=== PATIENT | female | born 1990 | race Caucasian/White ===

== ENCOUNTER 2020-08-13 16:36 | Inpatient (IN) | payer MEDICAID, SELFPAY ==
--- NOTE | ~2020-08-13 | CT_ITS ---
EXAMINATION: CT CHEST, ABDOMEN AND PELVIS WITHOUT CONTRAST CLINICAL INFORMATION: Reason for Exam Abdominal pain and back pain with hemoptysis COMPARISON: Chest CT 06/14/2018 TECHNIQUE: Multidetector volumetric imaging was performed from the thoracic inlet through the pubic symphysis without IV contrast. Sagittal and coronal reformatted images were obtained on the technologist's workstation. This CT examination was performed using dose optimization techniques as appropriate, variously including the following: *Automated exposure control *Adjustment of mA and/or kV according to patient size (this includes techniques or standardized protocols for targeted exams where dose is matched to indication/reason for exam; i.e. extremities or head) *Use of iterative reconstruction technique DLP: 1167 mGy-cm FINDINGS: CHEST: Lung: Again seen are multiple cavitary lesions throughout the lungs. There is been some interval change in appearance. For example, a right upper lobe nodular area that had been fairly solid is now cavitary and larger (9:250). Lisa bronchus can be seen directly entering this cavitary lesion. In addition, Some new cavitary lesions are seen. For example, in the right lower lobe where there has been 1 cavitary lesion laterally (prior 3:226) there are now 3-4 such lesions (9: 203-230). In the left lower lobe there had been 1 cavitary lesion laterally ((prior 3:262) whereas now there are at least 8 lesions ranging in size from 2.3 cm to a small abscess 0.5 cm. Mediastinum: It is difficult to assess for adenopathy without IV contrast but I suspect mediastinal and hilar lymph nodes have possibly increased in size Pericardium/Pleura: No significant effusion. No pleural mass or thickening. Chest Wall/Axilla: Unremarkable ABDOMEN/PELVIS: Peritoneal Space: No significant free air or free fluid identified. Liver, Gallbladder, Biliary Tree: The liver is markedly enlarged measuring over 26 cm in greatest dimension no focal liver mass seen on this noncontrast CT scan. The gallbladder is contracted but otherwise unremarkable with no evidence of radiopaque gallstones, gallbladder wall thickening, or obvious pericholecystic inflammatory changes. Pancreas: Unremarkable Spleen: Spleen is enlarged measuring 17 cm in cephalocaudad dimension Adrenal Glands: Unremarkable Kidneys and Ureters: The kidneys are normal in size, shape, and attenuation. A single tiny punctate nonobstructing left renal calculus is present. No hydronephrosis, hydroureter, or other calculi seen. No perinephric stranding. Bladder: Unremarkable Gastrointestinal Tract: There is no evidence of bowel obstruction. Abdominal Wall: No significant hernia is appreciated. Lymph Nodes: No lymphadenopathy. Vascular: The aorta appears normal.. The IVC appears unremarkable. PELVIC VISCERA: Unremarkable. No ascites is present OSSEUS STRUCTURES: Biconvex scoliosis is present with mild degenerative changes. No bony destructive lesions CT/CT abdomen pelvis wo con IMPRESSION: Multiple worsening cavitary lesions in the lungs. Septic emboli or fungal infection are considerations. These certainly can be associated with hemoptysis. Marked hepatosplenomegaly without ascites
[2020-08-13 16:46] VITALS: BP 98/49; PULSE 101; RESP 20; TEMP 38.1; O2SAT 93
[2020-08-13 16:53] VITALS: BMI 31.3
--- NOTE | 2020-08-13 17:25 | ED_ITS ---
HPI - General Adult General Chief complaint: General Medical <DREAD Ireland - Last Filed: 08/13/20 21:04> Stated complaint: abdominal pain back pain <DREAD Ireland - Last Filed: 08/13/20 21:04> Time Seen by Provider: 08/13/20 17:03 <DREAD Ireland - Last Filed: 08/13/20 21:04> Source: patient, EMS, RN notes reviewed and old records reviewed <DREAD Ireland - Last Filed: 08/13/20 21:04> Mode of arrival: EMS <DREAD Ireland - Last Filed: 08/13/20 21:04> Limitations: no limitations <DREAD Ireland - Last Filed: 08/13/20 21:04> History of Present Illness HPI narrative: 29-year-old female here today for complaints of abdominal pain, back pain, coughing up blood. Patient has a history of anxiety, autism, borderline personality, hepatitis-B, hepatitis-C, heroin and cocaine use, PTSD and seizures. Patient has a history of endocarditis diagnosed in 2019. Echo in 2019 showed vegetation of tricuspid leaflets that improved. Patient denies any CP, SOB with or without exertion, PND, presyncope or syncope. <CHERI Ireland - Last Filed: 08/13/20 21:04> Related Data Allergies/adverse reactions: Allergies Allergy/AdvReac Type Severity Reaction Status Date / Time Bleach (Sodium Hypochlorite) Allergy Unknown HIVES Verified 08/13/20 20:38 [BLEACH (SODIUM HYPOCHLORITE)] Sulfa (Sulfonamide Allergy Unknown HIVES Verified 08/13/20 20:38 Antibiotics) [SULFA (SULFONAMIDE ANTIBIOTICS)] diflunisal [From DOLOBID] AdvReac Unknown NAUSEA & Verified 08/13/20 20:38 VOMITING hydrocodone [HYDROCODONE] AdvReac Unknown AGITATION Verified 08/13/20 20:38 ketamine [KETAMINE] AdvReac Unknown AGITATION Verified 08/13/20 20:38 nitrofurantoin AdvReac Unknown NAUSEA & Verified 08/13/20 20:38 [From MACROBID] VOMITING <DREAD Ireland - Last Filed: 08/13/20 21:04> Review of Systems Review of Systems: Constitutional : No Weight loss, No Fever, No Chills, No Night Sweats, No Fatigue, No Malaise ENT/Mouth : No Hearing loss, No Ear Pain, No Nasal Congestion, No Sinus Pain, No Hoarseness, No sore throat, No Rhinorrhea, No Swallowing Difficulty Eyes: No Eye Pain, No Swelling, No Redness, No Foreign Body, No Discharge, No Vision Changes Cardiovascular : No Chest Pain, No SOB, No Dyspnea on Exertion, No Orthopnea, No Edema, No Palpitations Respiratory : Cough, bloody Sputum, No Wheezing, No Smoke Exposure, No Dyspnea Gastrointestinal : No Nausea, No Vomiting, No Diarrhea, No Constipation, abdominal Pain, No Hematochezia, No Melena Genitourinary : no irregular bleeding, No Dysuria, No Urinary Frequency, No Gabriel turia, No Urinary Incontinence, No Urgency, No Flank Pain, No Urinary Flow Changes, No Hesitancy Musculoskeletal : No joint pain, No Myalgias, No Joint Swelling Skin : No Skin Lesions, No rash Neuro : No Weakness, No Numbness, No Paresthesias, No Loss of Consciousness, No Dizziness, No Headache Psych : No Anxiety/Panic, No Depression, No SI/HI/AH/VH, No Social Issues, Heme/Lymph: No Bruising, No Bleeding,No Lymphadenopathy Endocrine : No Polyuria, No Polydipsia, No Temperature Intolerance <DREAD Ireland - Last Filed: 08/13/20 21:04> Yes all other systems are reviewed and are negative <CHERI Ireland - Last Filed: 08/13/20 21:04> [facility] Social History Social History: Social History Alcohol intake: current Smoking Status: Unknown if ever smoked Use of substances other than those prescribed or required for medical reasons: Yes Substance Use Type: Heroin Substance Use Frequency: Chronic Longstanding Advance Directives: No Advance Directives Information Provided: No <DREAD Ireland - Last Filed: 08/13/20 21:04> Physical Exam Vital Signs: Vital Signs: Last Vital Signs Temp 100.6 F H 08/13/20 16:46 Pulse 102 H 08/13/20 22:00 Resp 15 08/13/20 22:00 BP 96/48 L 08/13/20 22:00 Pulse Ox 98 08/13/20 22:00 Body Mass Index 31.3 <JUAN IrelandP-BC - Last Filed: 08/13/20 21:04> Vital Signs: Last Vital Signs Temp 100.6 F H 08/13/20 16:46 Pulse 102 H 08/13/20 22:00 Resp 08/13/20 22:00 BP 96/48 L 08/13/20 22:00 Pulse Ox 98 08/13/20 22:00 Body Mass Index 31.3 <Watson Ding MD - Last Filed: 08/14/20 01:23> Const: General: cooperative, healthy appearing and comfortable <JUAN IrelandP-BC - Last Filed: 08/13/20 21:04> Nutritional Appearance: average body habitus <JUAN IrelandP-BC - Last Filed: 08/13/20 21:04> Orientation/consciousness: patient oriented x3 <JUAN IrelandP-BC - Last Filed: 08/13/20 21:04> Limitations: no limitations <JUAN IrelandP-BC - Last Filed: 08/13/20 21:04> HENMT: Head: Yes normal to inspection <JUAN IrelandP-BC - Last Filed: 08/13/20 21:04> Ears: hearing grossly normal bilaterally <JUAN IrelandP-BC - Last Filed: 08/13/20 21:04> General nose exam: Normal external nose present <JUAN IrelandP-BC - Last Filed: 08/13/20 21:04> Face and sinus: Yes normal facial exam <JUAN IrelandP-BC - Last Filed: 08/13/20 21:04> Mouth: Normal oral and palatal mucosa present <JUAN IrelandP-BC - Last Filed: 08/13/20 21:04> Throat: Yes posterior oropharynx normal <Radha Stringer [employer]W OPERATOR-BC - Last Filed: 08/13/20 21:04> Eyes: General: appearance normal, both eyes and all related structures <JESICA Ireland-BC - Last Filed: 08/13/20 21:04> Eyelids: Yes eyelids normal <JESICA Ireland-BC - Last Filed: 08/13/20 21:04> Conjunctivae: conjunctivae normal <JESICA Ireland-BC - Last Filed: 08/13/20 21:04> Sclerae: sclerae normal <JESICA Ireland-BC - Last Filed: 08/13/20 21:04> Pupils: Equal, round and reactive pupils present <JESICA Ireland-BC - Last Filed: 08/13/20 21:04> Neck: Neck: Yes normal visual inspection, Yes full ROM, Yes no lymphadenopathy, Yes trachea midline and Yes supple <JESICA Ireland-BC - Last Filed: 08/13/20 21:04> Thyroid: Thyroid normal <JESICA Ireland-BC - Last Filed: 08/13/20 21:04> Lymphatic: no lymphadenopathy noted <JESICA Ireland-BC - Last Filed: 08/13/20 21:04> Chest: Chest palpation & inspection: normal inspection of the chest <JESICA Ireland-BC - Last Filed: 08/13/20 21:04> Resp: Effort & Inspection: normal respiratory effort and able to speak in complete sentences <Radha MontoyaoJESICA-BC - Last Filed: 08/13/20 21:04> Auscultation: clear to auscultation bilaterally <JESICA Ireland-BC - Last Filed: 08/13/20 21:04> Cardio: Jugular venous distension: no JVD <Radha Montoyaally JESICA-BC - Last Filed: 08/13/20 21:04> Rate: regular rate <Radah MontoyaoJESICA-BC - Last Filed: 08/13/20 21:04> Rhythm: regular rhythm <Radha MontoyaoJESICA-BC - Last Filed: 08/13/20 21:04> Heart sounds: S1 normal heart sound present, S2 normal heart sound present, no gallops, no murmurs and no rubs <JESICA Ireland-BC - Last Filed: 05/05 21:04> Peripheral pulses: Peripheral pulses 2+ throughout <JESICA Ireland-BC - Last Filed: 08/13/20 21:04> GI: Inspection: Yes normal to inspection and No distended <JESICA Ireland-BC - Last Filed: 08/13/20 21:04> Palpation (GI): No hepatosplenomegaly present and No Rebound tenderness present <JESICA Ireland-BC - Last Filed: 08/13/20 21:04> Percussion: Yes normal to percussion <JESICA Ireland-BC - Last Filed: 08/13/20 21:04> Auscultation: normal bowel sounds <JESICA Ireland-BC - Last Filed: 08/13/20 21:04> Back/Spine/Pelvis: Cervical Spine: cervical ROM normal and No cervical muscular tenderness <JESICA Ireland-BC - Last Filed: 08/13/20 21:04> Thoracic/Lumbar Spine: thoracic and lumbar spine normal to inspection <JESICA Ireland-BC - Last Filed: 08/13/20 21:04> Skin: General skin exam: no rashes or lesions noted, elasticity normal and tur gor normal <Radha Montoyaally JESICA-BC - Last Filed: 08/13/20 21:04> Neuro: General: patient oriented x3 <JESICA Ireland-BC - Last Filed: 08/13/20 21:04> Cranial nerves: Yes Equal, round and reactive pupils present <Radha Montoyaally JESICA-BC - Last Filed: 08/13/20 21:04> Extrem: General: Yes normal to inspection, Yes full ROM and Yes capillary refill normal <Radha Montoyaally V[employer] OPERATOR-BC - Last Filed: 08/13/20 21:04> Psych: Appearance: grossly normal <Radha Montoyaally JESICA-BC - Last Filed: 08/13/20 21:04> Mental Status: mental status grossly normal <CHERI IrelandBC - Last Filed: 08/13/20 21:04> Speech and movement: Normal speech and movement present <CHERI IrelandBC - Last Filed: 08/13/20 21:04> Affect: normal affect <DREAD Ireland - Last Filed: 08/13/20 21:04> Attitude: cooperative <CHERI IrelandBC - Last Filed: 08/13/20 21:04> Thought process: Normal thought process present <CHERI IrelandBC - Last Filed: 08/13/20 21:04> Insight: Good insight present (Psych) <DREAD Ireland - Last Filed: 08/13/20 21:04> Course Course Course Narrative: 29-year-old female here with multiple complaints. Patient complains of back spasms, upper abdominal discomfort cough. Will test her for COVID-19. Will order CTA of the chest and abdominal CT. <DREAD Ireland - Last Filed: 08/13/20 21:04> Reevaluation(s) Reevaluation #1: Patient is feeling anxious. No change in her symptoms. Will order l orazepam. <DREAD Ireland - Last Filed: 08/13/20 21:04> Reevaluation #2: Patient with leukocytosis, low platelets. Awaiting to go for CT scan chemistry and kidney functions pending. <DREAD Ireland - Last Filed: 08/13/20 21:04> Reevaluation #3: Report given to Dr. Resendez. <Radha MontoyaoDREAD - Last Filed: 08/13/20 21:04> Medical Decision Making Lab Data Result diagrams: : 08/13/20 20:00 08/13/20 20:00 <Radha CHERI CaraballoBC - Last Filed: 08/13/20 21:04> Labs: Lab Results 08/13/20 08/13/20 08/13/20 Range/Units 19:07 19:07 19:18 WBC (4.8-10.8) X10*3/uL RBC (4.20-5.50) X10*6/uL Hgb (12.0-16.0) g/dl Hct (37-47) % MCV (80-98) fL MCH (27.0-33.0) pg MCHC (31.0-35.0) g/dl RDW (11.0-16.0) % Plt Count (160-400) X10*3/uL MPV (9.4-12.3) fL Immature Gran % (Auto) (0.0-0.4) % Neut % (Auto) (45-73) % Lymph % (Auto) (20-40) % [place] % (Auto) (2-11) % Eos % (Auto) (0-4) % Baso % (Auto) (0-2) % Lymph # (Auto) (1.2-4.9) X10*3/uL [place] # (Auto) (0.1-1.2) X10*3/uL Eos # (Auto) (0.0-0.4) X10*3/uL Baso # (Auto) (0.0-0.2) X10*3/uL Abs Immat Gran (auto) (0.00-0.03) X10*3/uL Absolute Neuts (auto) (2.0-8.3) X10*3/uL Absolute Nucleated RBC (0.0-0.012) X10*3/uL Nucleated RBC % (auto) (0.0-0.2) /100WBC ESR (0-20) MM/HR Sodium (135-145) mmol/L Potassium (3.3-5.1) mmol/L Chloride (96-108) mmol/L Carbon Dioxide (22-29) mmol/L Anion Gap (12-20) BUN (9-16) mg/dL Creatinine (0.5-1.4) mg/dL Estim Creat Clear Calc Estimated GFR Random Glucose (60-115) mg/dL Calcium (8.4-10.2) mg/dL Total Bilirubin (0.0-1.0) mg/dL AST (5-31) U/L ALT (0-31) U/L Alkaline Phosphatase (39-117) U/L Total Protein (6.5-8.0) g/dL Albumin (3.5-5.0) g/dL Urine Color DARK YELLOW Urine Appearance CLEAR Urine pH 6.0 (5.0-8.0) Ur Specific [place] 1.020 (1.005-1.025) Urine Protein 1+ H (NEG-TRACE) MG/DL Urine Glucose (UA) NEG (NEG) MG/DL Urine Ketones NEG (NEG) MG/DL Urine Blood TRACE (NEG) Urine Nitrite NEG (NEG) Ur Leukocyte Esterase NEG (NEG) Urine RBC 1-4 (0) /HPF Urine WBC 1-4 (0-4) /HPF Ur Squamous Epith Cells 2+ /LPF Urine Bacteria NONE /LPF Hyaline Casts 0-2 /LPF Granular Casts 0-2 /LPF Urine Test NEGATIVE (NEGATIVE) COVID-19 (CRISTEL) Negative (Negative) COVID-19 Clin Com See Note 08/13/20 08/13/20 08/13/20 Range/Units 20:00 20:00 20:00 WBC 14.5 H (4.8-10.8) X10*3/uL RBC 4.69 (4.20-5.50) X10*6/uL Hgb 12.3 (12.0-16.0) g/dl Hct 36.6 L (37-47) % MCV 78.0 L (80-98) fL MCH 26.2 L (27.0-33.0) pg MCHC 33.6 (31.0-35.0) g/dl RDW 15.2 (11.0-16.0) % Plt Count 113 L (160-400) X10*3/uL MPV 10.5 (9.4-12.3) fL Immature Gran % (Auto) 0.6 H (0.0-0.4) % Neut % (Auto) 76.1 H (45-73) % Lymph % (Auto) 17.8 L (20-40) % [place] % (Auto) 5.2 (2-11) % Eos % (Auto) 0.1 (0-4) % Baso % (Auto) 0.2 (0-2) % Lymph # (Auto) 2.6 (1.2-4.9) X10*3/uL [place] # (Auto) 0.8 (0.1-1.2) X10*3/uL Eos # (Auto) 0.0 (0.0-0.4) X10*3/uL Baso # (Auto) 0.0 (0.0-0.2) X10*3/uL Abs Immat Gran (auto) 0.09 H (0.00-0.03) X10*3/uL Absolute Neuts (auto) 11.1 H (2.0-8.3) X10*3/uL Absolute Nucleated RBC 0.000 (0.0-0.012) X10*3/uL Nucleated RBC % (auto) 0.0 (0.0-0.2) /100WBC ESR 23 H (0-20) MM/HR Sodium 133 L (135-145) mmol/L Potassium 4.0 (3.3-5.1) mmol/L Chloride 93 L (96-108) mmol/L Carbon Dioxide 27 (22-29) mmol/L Anion Gap 17 (12-20) BUN 15 (9-16) mg/dL Creatinine 0.76 (0.5-1.4) mg/dL Estim Creat Clear Calc 124.0 Estimated GFR > 60 Random Glucose 81 (60-115) mg/dL Calcium 8.3 L (8.4-10.2) mg/dL Total Bilirubin 1.0 (0.0-1.0) mg/dL AST 14 (5-31) U/L ALT 12 (0-31) U/L Alkaline Phosphatase 136 H (39-117) U/L Total Protein 7.3 (6.5-8.0) g/dL Albumin 3.5 (3.5-5.0) g/dL Urine Color Urine Appearance Urine pH (5.0-8.0) Ur Specific [place] (1.005-1.025) Urine Protein (NEG-TRACE) MG/DL Urine Glucose (UA) (NEG) MG/DL Urine Ketones (NEG) MG/DL Urine Blood (NEG) Urine Nitrite (NEG) Ur Leukocyte Esterase (NEG) Urine RBC (0) /HPF Urine WBC (0-4) /HPF Ur Squamous Epith Cells /LPF Urine Bacteria /LPF Hyaline Casts /LPF Granular Casts /LPF Urine Test (NEGATIVE) COVID-19 (CRISTEL) (Negative) COVID-19 Clin Com <Radha Millie Stringer, V[employer]ICAL [employer] OPERATOR- - Last Filed: 08/13/20 21:04> Lab Results 08/13/20 08/13/20 08/13/20 Range/Units 19:07 19:07 19:18 WBC (4.8-10.8) X10*3/uL RBC (4.20-5.50) X10*6/uL Hgb (12.0-16.0) g/dl Hct (37-47) % MCV (80-98) fL MCH (27.0-33.0) pg MCHC (31.0-35.0) g/dl RDW (11.0-16.0) % Plt Count (160-400) X10*3/uL MPV (9.4-12.3) fL Immature Gran % (Auto) (0.0-0.4) % Neut % (Auto) (45-73) % Lymph % (Auto) (20-40) % [place] % (Auto) (2-11) % Eos % (Auto) (0-4) % Baso % (Auto) (0-2) % Lymph # (Auto) (1.2-4.9) X10*3/uL [place] # (Auto) (0.1-1.2) X10*3/uL Eos # (Auto) (0.0-0.4) X10*3/uL Baso # (Auto) (0.0-0.2) X10*3/uL Abs Immat Gran (auto) (0.00-0.03) X10*3/uL Absolute Neuts (auto) (2.0-8.3) X10*3/uL Absolute Nucleated RBC (0.0-0.012) X10*3/uL Nucleated RBC % (auto) (0.0-0.2) /100WBC ESR (0-20) MM/HR Sodium (135-145) mmol/L Potassium (3.3-5.1) mmol/L Chloride (96-108) mmol/L Carbon Dioxide (22-29) mmol/L Anion Gap (12-20) BUN (9-16) mg/dL Creatinine (0.5-1.4) mg/dL Estim Creat Clear Calc Estimated GFR Random Glucose (60-115) mg/dL Calcium (8.4-10.2) mg/dL Total Bilirubin (0.0-1.0) mg/dL AST (5-31) U/L ALT (0-31) U/L Alkaline Phosphatase (39-117) U/L Total Protein (6.5-8.0) g/dL Albumin (3.5-5.0) g/dL Urine Color DARK YELLOW Urine Appearance CLEAR Urine pH 6.0 (5.0-8.0) Ur Specific [place] 1.020 (1.005-1.025) Urine Protein 1+ H (NEG-TRACE) MG/DL Urine Glucose (UA) NEG (NEG) MG/DL Urine Ketones NEG (NEG) MG/DL Urine Blood TRACE (NEG) Urine Nitrite NEG (NEG) Ur Leukocyte Esterase NEG (NEG) Urine RBC 1-4 (0) /HPF Urine WBC 1-4 (0-4) /HPF Ur Squamous Epith Cells 2+ /LPF Urine Bacteria NONE /LPF Hyaline Casts 0-2 /LPF Granular Casts 0-2 /LPF Urine Test NEGATIVE (NEGATIVE) COVID-19 (CRISTEL) Negative (Negative) COVID-19 Clin Com See Note 08/13/20 08/13/20 08/13/20 Range/Units 20:00 20:00 20:00 WBC 14.5 H (4.8-10.8) X10*3/uL RBC 4.69 (4.20-5.50) X10*6/uL Hgb 12.3 (12.0-16.0) g/dl Hct 36.6 L (37-47) % MCV 78.0 L (80-98) fL MCH 26.2 L (27.0-33.0) pg MCHC 33.6 (31.0-35.0) g/dl RDW 15.2 (11.0-16.0) % Plt Count 113 L (160-400) X10*3/uL MPV 10.5 (9.4-12.3) fL Immature Gran % (Auto) 0.6 H (0.0-0.4) % Neut % (Auto) 76.1 H (45-73) % Lymph % (Auto) 17.8 L (20-40) % [place] % (Auto) 5.2 (2-11) % Eos % (Auto) 0.1 (0-4) % Baso % (Auto) 0.2 (0-2) % Lymph # (Auto) 2.6 (1.2-4.9) X10*3/uL [place] # (Auto) 0.8 (0.1-1.2) X10*3/uL Eos # (Auto) 0.0 (0.0-0.4) X10*3/uL Baso # (Auto) 0.0 (0.0-0.2) X10*3/uL Abs Immat Gran (auto) 0.09 H (0.00-0.03) X10*3/uL Absolute Neuts (auto) 11.1 H (2.0-8.3) X10*3/uL Absolute Nucleated RBC 0.000 (0.0-0.012) X10*3/uL Nucleated RBC % (auto) 0.0 (0.0-0.2) /100WBC ESR 23 H (0-20) MM/HR Sodium 133 L (135-145) mmol/L Potassium 4.0 (3.3-5.1) mmol/L Chloride 93 L (96-108) mmol/L Carbon Dioxide 27 (22-29) mmol/L Anion Gap 17 (12-20) BUN 15 (9-16) mg/dL Creatinine 0.76 (0.5-1.4) mg/dL Estim Creat Clear Calc 124.0 Estimated GFR > 60 Random Glucose 81 (60-115) mg/dL Calcium 8.3 L (8.4-10.2) mg/dL Total Bilirubin 1.0 (0.0-1.0) mg/dL AST 14 (5-31) U/L ALT 12 (0-31) U/L Alkaline Phosphatase 136 H (39-117) U/L Total Protein 7.3 (6.5-8.0) g/dL Albumin 3.5 (3.5-5.0) g/dL Urine Color Urine Appearance Urine pH (5.0-8.0) Ur Specific [place] (1.005-1.025) Urine Protein (NEG-TRACE) MG/DL Urine Glucose (UA) (NEG) MG/DL Urine Ketones (NEG) MG/DL Urine Blood (NEG) Urine Nitrite (NEG) Ur Leukocyte Esterase (NEG) Urine RBC (0) /HPF Urine WBC (0-4) /HPF Ur Squamous Epith Cells /LPF Urine Bacteria /LPF Hyaline Casts /LPF Granular Casts /LPF Urine Test (NEGATIVE) COVID-19 (CRISTEL) (Negative) COVID-19 Clin Com <Watson Ding MD - Last Filed: 08/14/20 01:23>
[2020-08-13] MEDS: LORazepam 2 MG/ML VIAL 0.5 MG IVPUSH (19:14)
[2020-08-13 19:15] LABS: Glucose Urine UA NEG (NEG); Leukocyte Esterase Urine NEG (NEG); Nitrite Urine NEG (NEG); Urine Blood TRACE (NEG); Urine Ketones NEG (NEG); Urine Protein 1+ MG/DL (NEG-TRACE)
[2020-08-13 19:18] LABS: Appearance Urine CLEAR; Color Urine DARK YELLOW; UPreg QC Valid YES; Urine Pregnancy NEGATIVE (NEGATIVE)
[2020-08-13 19:32] LABS: Granular Casts Urine 0-2 /LPF; Hyaline Casts Urine 0-2 /LPF; Squamous Epithelial Cell Urine 2+ /LPF
[2020-08-13 19:43] LABS: COVID-19 Test Negative (Negative)
[2020-08-13 20:00] VITALS: BP 96/48; PULSE 102; RESP 15; O2SAT 95
[2020-08-13 20:09] LABS: Eosinophils Percent Auto 0.1 % (0-4); Mean Platelet Volume 10.5 fL (9.4-12.3); PLT CLUMP 1; Red Cell Distribution Width 15.2 % (11.0-16.0); SCAN SMEAR FLAG 1
[2020-08-13 20:11] LABS: Basophils Percent Auto 0.2 % (0-2); Hematocrit 36.6 % (37-47); Hemoglobin 12.3 g/dl (12.0-16.0); Imm Gran Abs Auto 0.09 X10*3/uL (0.00-0.03); Imm Gran Pct Auto 0.6 % (0.0-0.4); Lymphocytes Absolute Auto 2.6 X10*3/uL (1.2-4.9); Lymphocytes Percent Auto 17.8 % (20-40); Mean Corpuscular HGB Conc 33.6 g/dl (31.0-35.0); Mean Corpuscular Hemoglobin 26.2 pg (27.0-33.0); Monocytes Absolute Auto 0.8 X10*3/uL (0.1-1.2); Monocytes Percent Auto 5.2 % (2-11); Neutrophils Absolute Auto 11.1 X10*3/uL (2.0-8.3); Neutrophils Percent Auto 76.1 % (45-73); Platelet Count 113 X10*3/uL (160-400); Red Blood Count 4.69 X10*6/uL (4.20-5.50); White Blood Count 14.5 X10*3/uL (4.8-10.8)
[2020-08-13 20:12] LABS: MANUAL DIFF FLAG NO
[2020-08-13 20:53] LABS: Alanine Aminotransferase 12 U/L (0-31); Albumin Level 3.5 g/dL (3.5-5.0); Alkaline Phosphatase 136 U/L (39-117); Anion Gap 17 (12-20); Aspartate Amino Transferase 14 U/L (5-31); Blood Urea Nitrogen 15 mg/dL (9-16); Calcium 8.3 mg/dL (8.4-10.2); Carbon Dioxide 27 mmol/L (22-29); Chloride 93 mmol/L (96-108); Estimated Glomerular Filt Rate > 60; Glucose Random 81 mg/dL (60-115); Sodium 133 mmol/L (135-145); Total Protein 7.3 g/dL (6.5-8.0)
[2020-08-13 21:10] LABS: Erythrocyte Sedimentation Rate 23 MM/HR (0-20)
[2020-08-13] MEDS: LORazepam 2 MG/ML VIAL 1 MG IVPUSH (21:58)
[2020-08-13 22:00] VITALS: BP 96/48; PULSE 102; RESP 15; O2SAT 98
--- NOTE | 2020-08-13 22:41 | PC.NURSE ---
Patient's IV infiltrated when contrast was administered while in cat scan.
[2020-08-14] VITALS (8 sets, daily range): BP systolic 96–109; BP diastolic 52–66; PULSE 86–120; RESP 15–27; TEMP 36.7–39.3; O2SAT 92–100
[2020-08-14] MEDS: 0.9 % Sodium Chloride 1,000 ML 999 ML IV (01:18)
[2020-08-14 01:29] LABS: Lactic Acid 0.8 mmol/L (0.5-2.0)
[2020-08-14] MEDS: Acetaminophen 325 MG TABLET 975 MG PO (01:55)
[2020-08-14] MEDS: Piperacillin Sodium/Tazobactam 3.375 GM in 0.9 % Sodium Chloride 50 ML IV ×4 (02:06→20:18)
--- NOTE | 2020-08-14 02:07 | P.HPHOSP_ITS ---
History of Present Illness Date of Service: 08/14/20 Chief Complaint: chest pain be 29-year-old female with a past medical history of IV drug abuse, history of hep C, hep B, polysubstance abuse, PTSD, seizures, history of endocarditis in 2018 and 2019, opiate dependence on methadone presented to the hospital with a chief complaint of chest pain, abdominal pain, back pain along with coughing of blood the past couple days. Denies any numbness tingling. denies any palpitations. Mentioned that the symptoms are similar to last day when she had endocarditis. Mention she still uses IV cocaine. Denies any GI or symptoms. Mention the symptoms have been intermittent. Review of systems is negative except mentioned above ER course: Per ER team patient CT scan showed multiple lung cavitary lesion/septic emboli. Patient was given vanc and Zosyn. Also sent AFB; blood cultures have been sent [facility] Social History Alcohol intake: current Smoking Status: Unknown if ever smoked Use of substances other than those prescribed or required for medical reasons: Yes Substance Use Type: Heroin Substance Use Frequency: Chronic Longstanding Advance Directives: No Advance Directives Information Provided: No Meds Allergies Allergy/AdvReac Type Severity Reaction Status Date / Time Bleach (Sodium Hypochlorite) Allergy Unknown HIVES Verified 08/13/20 20:38 [BLEACH (SODIUM HYPOCHLORITE)] Sulfa (Sulfonamide Allergy Unknown HIVES Verified 08/13/20 20:38 Antibiotics) [SULFA (SULFONAMIDE ANTIBIOTICS)] diflunisal [From DOLOBID] AdvReac Unknown NAUSEA & Verified 08/13/20 20:38 VOMITING hydrocodone [HYDROCODONE] AdvReac Unknown AGITATION Verified 08/13/20 20:38 ketamine [KETAMINE] AdvReac Unknown AGITATION Verified 08/13/20 20:38 nitrofurantoin AdvReac Unknown NAUSEA & Verified 08/13/20 20:38 [From MACROBID] VOMITING Active Medications: Current Medications Generic Name Dose Route Start Last Admin Trade Name Freq PRN Reason Stop Dose Admin Acetaminophen 650 mg 08/14/20 01:51 Acetaminophen 325 Mg Tablet PO Q6H PRN Pain, Mild (Pain Scale 1-3) Enoxaparin Sodium 40 mg 08/14/20 09:00 Enoxaparin Sodium 40 Mg/0.4 Ml Syringe SUBCUT Q24H [place] Vancomycin HCl 1,000 mg/ 535 mls @ 267.5 mls/hr 08/14/20 01:02 Vancomycin HCl 750 mg/ Sodium IV 08/14/20 03:01 Chloride ONCE ONE Piperacillin Sod/Tazobactam 50 mls @ 100 mls/hr 08/14/20 08:00 Sod 3.375 gm/ Sodium Chloride IV Q6H [facility] Vancomycin HCl 1,000 mg/ 270 mls @ 270 mls/hr 08/14/20 02:00 Sodium Chloride IV Q12H [facility] Dextrose/Sodium Chloride 1,000 mls @ 100 mls/hr 08/14/20 02:00 D51/2ns IVCONT .Q10H [facility] Pharmacy Consult 1 each 08/14/20 01:02 Consult Rx Vancomycin Dosing MISCELLANE DAILY PRN Consult order Pharmacy Consult 1 each 08/14/20 01:50 Consult Rx Vancomycin Dosing MISCELLANE DAILY PRN Consult order Senna 17.2 mg 08/14/20 01:51 Sennosides 8.6 Mg Tablet PO BEDTIME PRN Constipation Sodium Chloride 3 ml 08/14/20 08:00 0.9 % Sodium Chloride Flush 3 Ml Syringe IVFLUSH QSHIFT [facility] Home Medications Medication Instructions Recorded Confirmed Last Taken Type methadone [Methadone Intensol] 85 mg PO DAILY 08/14/20 08/14/20 08/13/20 History Physical Exam Vital Signs and Narrative: Vital Signs: Last Vital Signs Temp 102.8 F H 08/14/20 01:30 Pulse 120 H 08/14/20 01:30 Resp 27 H 08/14/20 01:30 BP 99/63 08/14/20 01:30 Pulse Ox 95 08/14/20 01:30 Body Mass Index 31.3 Gen: Appears be in no acute distress HEENT: NCAT, Moist mucosa. Pulmonary: course breath sounds, fair air entry CVS: Normal S1-S2 Abdomen: BS+, Soft, Nontender Extremities: Warm well perfused Neuro: Alert and awake. Results Labs CBC and Chem 7: 08/14/20 06:42 08/14/20 06:42 Labs: Laboratory Results - last 24 hr 08/13/20 08/13/20 08/13/20 19:07 19:07 19:18 MCV MCH MCHC RDW Plt Count MPV Immature Gran % (Auto) Neut % (Auto) Lymph % (Auto) [place] % (Auto) Eos % (Auto) Baso % (Auto) Lymph # (Auto) [place] # (Auto) Eos # (Auto) Baso # (Auto) Abs Immat Gran (auto) Absolute Neuts (auto) Absolute Nucleated RBC Nucleated RBC % (auto) ESR Anion Gap Estim Creat Clear Calc Estimated GFR Random Glucose Lactic Acid Calcium Total Bilirubin AST ALT Alkaline Phosphatase Total Protein Albumin Urine Color DARK YELLOW Urine Appearance CLEAR Urine pH 6.0 Ur Specific [place] 1.020 Urine Protein 1+ H Urine Glucose (UA) NEG Urine Ketones NEG Urine Blood TRACE Urine Nitrite NEG Ur Leukocyte Esterase NEG Urine RBC 1-4 Urine WBC 1-4 Ur Squamous Epith Cells 2+ Urine Bacteria NONE Hyaline Casts 0-2 Granular Casts 0-2 Urine Test NEGATIVE COVID-19 ([facility]) Negative COVID-19 Clin Com See Note 08/13/20 08/13/20 08/13/20 20:00 20:00 20:00 MCV 78.0 L MCH 26.2 L MCHC 33.6 RDW 15.2 Plt Count 113 L MPV 10.5 Immature Gran % (Auto) 0.6 H Neut % (Auto) 76.1 H Lymph % (Auto) 17.8 L [place] % (Auto) 5.2 Eos % (Auto) 0.1 Baso % (Auto) 0.2 Lymph # (Auto) 2.6 [place] # (Auto) 0.8 Eos # (Auto) 0.0 Baso # (Auto) 0.0 Abs Immat Gran (auto) 0.09 H Absolute Neuts (auto) 11.1 H Absolute Nucleated RBC 0.000 Nucleated RBC % (auto) 0.0 ESR 23 H Anion Gap 17 Estim Creat Clear Calc 124.0 Estimated GFR > 60 Random Glucose 81 Lactic Acid Calcium 8.3 L Total Bilirubin 1.0 AST 14 ALT 12 Alkaline Phosphatase 136 H Total Protein 7.3 Albumin 3.5 Urine Color Urine Appearance Urine pH Ur Specific [place] Urine Protein Urine Glucose (UA) Urine Ketones Urine Blood Urine Nitrite Ur Leukocyte Esterase Urine RBC Urine WBC Ur Squamous Epith Cells Urine Bacteria Hyaline Casts Granular Casts Urine Test COVID-19 ([facility]) COVID-19 Clin Com 08/14/20 01:09 MCV MCH MCHC RDW Plt Count MPV Immature Gran % (Auto) Neut % (Auto) Lymph % (Auto) [place] % (Auto) Eos % (Auto) Baso % (Auto) Lymph # (Auto) [place] # (Auto) Eos # (Auto) Baso # (Auto) Abs Immat Gran (auto) Absolute Neuts (auto) Absolute Nucleated RBC Nucleated RBC % (auto) ESR Anion Gap Estim Creat Clear Calc Estimated GFR Random Glucose Lactic Acid 0.8 Calcium Total Bilirubin AST ALT Alkaline Phosphatase Total Protein Albumin Urine Color Urine Appearance Urine pH Ur Specific [place] Urine Protein Urine Glucose (UA) Urine Ketones Urine Blood Urine Nitrite Ur Leukocyte Esterase Urine RBC Urine WBC Ur Squamous Epith Cells Urine Bacteria Hyaline Casts Granular Casts Urine Test COVID-19 ([facility]) COVID-19 Clin Com Imaging Radiologist's Impressions: Impressions Chest CT 08/13/20 17:25 IMPRESSION: Multiple worsening cavitary lesions in the lungs. Septic emboli or fungal infection are considerations. These certainly can be associated with hemoptysis. Marked hepatosplenomegaly without ascites Abdomen/Pelvis CT 08/13/20 17:26 IMPRESSION: Multiple worsening cavitary lesions in the lungs. Septic emboli or fungal infection are considerations. These certainly can be associated with hemoptysis. Marked hepatosplenomegaly without ascites Assessment and Plan (1) Cavitary pneumonia: Status: Acute 29-year-old female with a past medical history of anxiety, depression, PTSD, history of seizures, history of hep B, history of hep C, history of IV drug abuse, polysubstance abuse, opiate dependence on methadone, history of endocarditis presented with chest pain/ abdominal pain. CT scan showed cavitary lung lesions and pulmonary septic emboli. Admitted for further management Septic pulmonary emboli/ lung cavitary lesions: Continue IV vanc and Zosyn. Follow-up blood cultures. Id consult for further recommendations. Patient is on respiratory isolation. AFB has been Ordered. Will also obtain echocardiogram COVID-19 negative opiate dependence: Patient on methadone as outpatient. Will defer to a.m. team to confirm and resume accordingly. History of IV drug abuse/cocaine abuse: Patient counseled to avoid illicit drug use. DVT prophylaxis: Lovenox Code status: Full code
[2020-08-14 02:26] LABS: Amphetamine Screen Urine Not Detected (Not Detect); Barbiturates, Urine Not Detected (Not Detect); Benzodiazepines Screen Urine Not Detected (Not Detect); Cannabinoid Screen Urine POSITIVE (Not Detect); Cocaine Screen Urine POSITIVE (Not Detect); Opiate Screen Urine POSITIVE (Not Detect); Phencyclidine Screen Urine Not Detected (Not Detect)
[2020-08-14] MEDS: vancomycin HCL 1,000 MG, vancomycin HCL 750 MG in 0.9 % Sodium Chloride 500 ML 267.5 MG IV (02:42)
[2020-08-14] MEDS: Morphine Sulfate 4 MG/ML CARTRIDGE IVPUSH (02:42)
[2020-08-14 06:55] LABS: MANUAL DIFF FLAG NO
[2020-08-14 07:07] LABS: Basophils Percent Auto 0.3 % (0-2); Eosinophils Percent Auto 0.1 % (0-4); Hemoglobin 10.8 g/dl (12.0-16.0); Imm Gran Abs Auto 0.11 X10*3/uL (0.00-0.03); Imm Gran Pct Auto 0.9 % (0.0-0.4); Lymphocytes Percent Auto 15.7 % (20-40); Mean Corpuscular HGB Conc 33.8 g/dl (31.0-35.0); Mean Corpuscular Hemoglobin 26.3 pg (27.0-33.0); Mean Corpuscular Volume 77.9 fL (80-98); Mean Platelet Volume 10.7 fL (9.4-12.3); Monocytes Absolute Auto 1.1 X10*3/uL (0.1-1.2); Monocytes Percent Auto 8.9 % (2-11); Neutrophils Absolute Auto 9.4 X10*3/uL (2.0-8.3); Neutrophils Percent Auto 74.1 % (45-73); Platelet Count 103 X10*3/uL (160-400); Red Blood Count 4.11 X10*6/uL (4.20-5.50); Red Cell Distribution Width 15.3 % (11.0-16.0); White Blood Count 12.7 X10*3/uL (4.8-10.8)
[2020-08-14 07:25] LABS: Anion Gap 10 (12-20); Blood Urea Nitrogen 16 mg/dL (9-16); Carbon Dioxide 29 mmol/L (22-29); Chloride 100 mmol/L (96-108); Creatinine Clr Calc Pharmacy 125.6; Estimated Glomerular Filt Rate > 60; Glucose Random 106 mg/dL (60-115); Potassium 3.9 mmol/L (3.3-5.1); Sodium 135 mmol/L (135-145)
[2020-08-14] MEDS: Dextrose 5 % and 0.45 % NaCl 1,000 ML 100 ML IVCONT ×3 (07:26→21:12)
[2020-08-14 07:30] LABS: Calcium 7.6 mg/dL (8.4-10.2)
--- NOTE | 2020-08-14 09:14 | P.PNIM_ITS ---
Subjective Subjective Date of Service: 08/14/20 <Franny Pineda NP - Last Filed: 08/14/20 17:17> 08/15/20 <Fran Garzon MD - Last Filed: 08/15/20 13:46> Interval History: Follow up Hemoptysis. Dry cough at this time, still with left marcella/flank pain, spasms. <Franny Pineda NP - Last Filed: 08/14/20 17:17> Physical Exam Vital Signs: Vital Signs: Last Vital Signs Temp 99.4 F 08/14/20 04:45 Pulse 86 08/14/20 06:14 Resp 17 08/14/20 06:14 BP 96/55 L 08/14/20 06:14 Pulse Ox 98 08/14/20 06:14 Body Mass Index 31.3 <Franny Pineda NP - Last Filed: 08/14/20 17:17> Appearing in no acute distress lung sounds are clear to auscultation heart regular rate rhythm, clear S1, S2 positive bowel sounds. left flank pain neuro patient is alert x3, no focal deficits <Franny Pineda NP - Last Filed: 08/14/20 17:17> Objective Data Current Medications Generic Name Dose Route Start Last Admin Trade Name Freq PRN Reason Stop Dose Admin Acetaminophen 650 mg 08/14/20 01:51 Acetaminophen 325 Mg Tablet PO Q6H PRN Pain, Mild (Pain Scale 1-3) Enoxaparin Sodium 40 mg 08/14/20 09:00 08/14/20 09:13 Enoxaparin Sodium 40 Mg/0.4 Ml Syringe SUBCUT Not Given Q24H [facility] Piperacillin Sod/Tazobactam 50 mls @ 100 mls/hr 08/14/20 08:00 08/14/20 07:38 Sod 3.375 gm/ Sodium Chloride IV 100 mls/hr Q6H [facility] Administration Dextrose/Sodium Chloride 1,000 mls @ 100 mls/hr 08/14/20 02:00 08/14/20 07:26 D51/2ns IVCONT 100 mls/hr .Q10H [facility] Administration Vancomycin HCl 1,250 mg/ 250 mls @ 166.667 mls/hr 08/14/20 15:00 Sodium Chloride IV Q12H [facility] Pharmacy Consult 1 each 08/14/20 01:02 Consult Rx Vancomycin Dosing MISCELLANE DAILY PRN Consult order Pharmacy Consult 1 each 08/14/20 01:50 Consult Rx Vancomycin Dosing MISCELLANE DAILY PRN Consult order Senna 17.2 mg 08/14/20 01:51 Sennosides 8.6 Mg Tablet PO BEDTIME PRN Constipation Sodium Chloride 3 ml 08/14/20 08:00 08/14/20 07:42 0.9 % Sodium Chloride Flush 3 Ml Syringe IVFLUSH Not Given QSHIFT [facility] <Franny Pineda NP - Last Filed: 08/14/20 17:17> Labs CBC & Chem 7: : 08/15/20 04:32 08/15/20 04:32 <Franny Pineda NP - Last Filed: 08/14/20 17:17> Assessment and Plan (1) Cavitary pneumonia: Status: Acute <Franny Pineda NP - Last Filed: 08/14/20 17:17> Assessment and Plan: 29-year-old female with a past medical history of anxiety, depression, PTSD, history of seizures, history of hep B, history of hep C, history of IV drug abuse, polysubstance abuse, opiate dependence on methadone, history of endocarditis presented with chest pain/ abdominal pain. CT scan showed cavitary lung lesions and pulmonary septic emboli. Admitted for further management. Endocarditis 12/15/19, 06/2018 Sepsis. Fever, tachycardia, leukocytosis, normal lactic acid. -Follow cx Septic pulmonary emboli/ lung cavitary lesions. Chronic, septic emboli in the past. covid neg -continue IV vanc and Zosyn. -Follow-up blood cultures. -Id consult for further recommendations. -respiratory isolation. AFB ordered, no recent group home time, ? homelessness -echocardiogram Opiate dependence. Uses IV crack cocaine and heroin -Verify methadone dose -addiction service consult Back spasm. no UTI -Lidocaine patch DVT prophylaxis with Lovenox (patient declining) Attending: Dr. Garzon <Franny Pineda NP - Last Filed: 08/14/20 17:17> (2) Fever: Status: Acute <Franny Pineda NP - Last Filed: 08/14/20 17:17> (3) Uses drugs by injection: Status: Acute <Franny Pineda NP - Last Filed: 08/14/20 17:17> Assessment and Plan: I saw patient with [employer] PUBLISHING ASSOCIATE, and agree with A/P above, TB less concern, likely septic embolic. Continue Vanco, follow cultures, check T spot or tb sputm. O/w I agree with A/P as above and to have Echo and possible CRIS <Franpippa Garzon MD - Last Filed: 08/15/20 13:46>
[2020-08-14] MEDS: vancomycin HCL 1,250 MG in 0.9 % Sodium Chloride 250 ML 166.67 MG IV (15:30)
--- NOTE | 2020-08-14 19:30 | PC.NURSE ---
Report given to [facility] RN.
[2020-08-14] MEDS: Melatonin 3 MG TABLET 6 MG PO (21:04)
[2020-08-14] MEDS: Acetaminophen 325 MG TABLET 650 MG PO (21:04)
[2020-08-14] MEDS: HYDROmorphone HCl 2 MG TABLET 1 MG PO (23:16)
[2020-08-14] MEDS: 0.9 % Sodium Chloride Flush 3 ML SYRINGE IVFLUSH (23:18)
--- NOTE | 2020-08-14 23:45 | MHC.PIE ---
p; pt arrived from ed c/o nausea and insomnia asking for zofran and melatonin. i; dr tyson notified; new order melatonin. no zofran at this time d/t qtc issues per md p; pt was asleep, but was woken by senior medical director for vs. now pt c/o pain 01/22 i; notified. new order dilaudid 1mg po now e; will cont to monitor
[2020-08-15] MEDS: Piperacillin Sodium/Tazobactam 3.375 GM in 0.9 % Sodium Chloride 50 ML IV ×3 (03:26→12:55)
[2020-08-15 04:00] VITALS: BP 117/58; PULSE 83; RESP 18; TEMP 36.9; O2SAT 96
[2020-08-15] MEDS: vancomycin HCL 1,250 MG in 0.9 % Sodium Chloride 250 ML 166.67 MG IV ×2 (04:09→18:08)
[2020-08-15 05:05] LABS: Basophils Percent Auto 0.2 % (0-2); Mean Corpuscular HGB Conc 33.1 g/dl (31.0-35.0); PLT CLUMP 1; SCAN SMEAR FLAG 1
[2020-08-15 05:08] LABS: Eosinophils Percent Auto 0.1 % (0-4); Hematocrit 30.2 % (37-47); Imm Gran Abs Auto 0.18 X10*3/uL (0.00-0.03); Imm Gran Pct Auto 1.1 % (0.0-0.4); Lymphocytes Absolute Auto 3.2 X10*3/uL (1.2-4.9); Lymphocytes Percent Auto 19.5 % (20-40); Mean Corpuscular Hemoglobin 25.7 pg (27.0-33.0); Mean Corpuscular Volume 77.6 fL (80-98); Mean Platelet Volume 10.1 fL (9.4-12.3); Monocytes Absolute Auto 1.4 X10*3/uL (0.1-1.2); Monocytes Percent Auto 8.7 % (2-11); Neutrophils Absolute Auto 11.5 X10*3/uL (2.0-8.3); Neutrophils Percent Auto 70.4 % (45-73); Platelet Count 111 X10*3/uL (160-400); Red Blood Count 3.89 X10*6/uL (4.20-5.50); Red Cell Distribution Width 15.6 % (11.0-16.0); White Blood Count 16.4 X10*3/uL (4.8-10.8)
[2020-08-15 05:13] LABS: MANUAL DIFF FLAG NO
[2020-08-15 05:36] LABS: Anion Gap 12 (12-20); Blood Urea Nitrogen 11 mg/dL (9-16); Calcium 7.6 mg/dL (8.4-10.2); Carbon Dioxide 25 mmol/L (22-29); Chloride 101 mmol/L (96-108); Creatinine Clr Calc Pharmacy 154.4; Estimated Glomerular Filt Rate > 60; Glucose Random 98 mg/dL (60-115); Potassium 4.2 mmol/L (3.3-5.1); Sodium 134 mmol/L (135-145)
[2020-08-15 07:57] VITALS: BP 115/59; PULSE 101; RESP 20; TEMP 36.7; O2SAT 94
[2020-08-15] MEDS: Dextrose 5 % and 0.45 % NaCl 1,000 ML 100 ML IVCONT ×2 (08:06→18:08)
[2020-08-15] MEDS: 0.9 % Sodium Chloride Flush 3 ML SYRINGE IVFLUSH (08:06)
[2020-08-15] MEDS: Lidocaine 4 % Patch ADH..PATCH 1 PATCH TRANSDERMA (08:07)
--- NOTE | 2020-08-15 10:17 | P.PNIM_ITS ---
Subjective Subjective Date of Service: 08/15/20 <Franny Pineda NP - Last Filed: 08/15/20 10:25> 08/15/20 <Fran Garzon MD - Last Filed: 08/15/20 13:49> Interval History: Follow up cavitary lesion, iv drug use. Still with back pain, wants increase in her methadone <Franny Pineda NP - Last Filed: 08/15/20 10:25> Physical Exam Vital Signs: Vital Signs: Last Vital Signs Temp 98.1 F 08/15/20 07:57 Pulse 101 H 08/15/20 07:57 Resp 20 08/15/20 07:57 BP 115/59 L 08/15/20 07:57 Pulse Ox 94 08/15/20 07:57 Body Mass Index 31.3 <Franny Pineda NP - Last Filed: 08/15/20 10:25> Laying in bed lung sounds are clear to auscultation heart regular rate rhythm, clear S1, S2 positive bowel sounds, abdomen is soft, nontender neuro patient is alert x3, no focal deficits Scabs and pick oseguera all over arms Back pain <Franny Pineda NP - Last Filed: 08/15/20 10:25> Objective Data Current Medications Generic Name Dose Route Start Last Admin Trade Name Freq PRN Reason Stop Dose Admin Acetaminophen 650 mg 08/14/20 01:51 08/14/20 21:04 Acetaminophen 325 Mg Tablet PO 650 mg Q6H PRN Administration Pain, Mild (Pain Scale 1-3) Enoxaparin Sodium 40 mg 08/14/20 09:00 08/15/20 08:10 Enoxaparin Sodium 40 Mg/0.4 Ml Syringe SUBCUT Not Given Q24H [facility] Piperacillin Sod/Tazobactam 50 mls @ 100 mls/hr 08/14/20 08:00 08/15/20 08:46 Sod 3.375 gm/ Sodium Chloride IV Infused Q6H [facility] Infusion Dextrose/Sodium Chloride 1,000 mls @ 100 mls/hr 08/14/20 02:00 08/15/20 08:06 D51/2ns IVCONT 100 mls/hr .Q10H [place] Administration Vancomycin HCl 1,250 mg/ 250 mls @ 166.667 mls/hr 08/14/20 15:00 08/15/20 05:58 Sodium Chloride IV Infused Q12H [facility] Infusion Lidocaine 1 patch 08/15/20 09:00 08/15/20 08:07 Lidocaine 4 % Patch Adh..Patch TRANSDERMA 1 patch DAILY [place] Administration Protocol Melatonin 6 mg 08/14/20 20:35 08/14/20 21:04 Melatonin 3 Mg Tablet PO 6 mg BEDTIME PRN Administration Insomnia Methadone HCl 80 mg 08/14/20 13:55 08/15/20 08:07 Methadone Hcl 1 Mg/0.1 Ml Oral.Conc PO 80 mg DAILY [facility] Administration Pharmacy Consult 1 each 08/14/20 01:02 Consult Rx Vancomycin Dosing MISCELLANE DAILY PRN Consult order Pharmacy Consult 1 each 08/14/20 01:50 Consult Rx Vancomycin Dosing MISCELLANE DAILY PRN Consult order Senna 17.2 mg 08/14/20 01:51 Sennosides 8.6 Mg Tablet PO BEDTIME PRN Constipation Sodium Chloride 3 ml 08/14/20 08:00 08/15/20 08:06 0.9 % Sodium Chloride Flush 3 Ml Syringe IVFLUSH 3 ml QSHIFT [place] Administration <Franny Pineda NP - Last Filed: 08/15/20 10:25> Labs CBC & Chem 7: : 08/15/20 04:32 08/15/20 04:32 <Franny Pineda NP - Last Filed: 08/15/20 10:25> Microbiology Microbiology Results: Microbiology 08/14/20 01:25 Blood - Venous Blood Culture - Preliminary Staphylococcus aureus 08/14/20 01:17 Blood - Venous Blood Culture - Preliminary Staphylococcus aureus 08/14/20 09:17 Sputum - Expectorated Gram Stain - Final 08/14/20 09:17 Sputum - Expectorated Sputum Culture - Preliminary Normal so far. 08/14/20 01:07 Blood - Venous Blood Culture - Final 08/14/20 01:07 Blood - Venous Blood Culture - Final <Franny Pineda NP - Last Filed: 08/15/20 10:25> Assessment and Plan (1) Cavitary pneumonia: Status: Acute <Franny Pineda NP - Last Filed: 08/15/20 10:25> Assessment and Plan: 29-year-old female with a past medical history of anxiety, depression, PTSD, history of seizures, history of hep B, history of hep C, history of IV drug abuse, polysubstance abuse, opiate dependence on methadone, history of endocarditis presented with chest pain/ abdominal pain. CT scan showed cavitary lung lesions and pulmonary septic emboli. Admitted for further management. Endocarditis 12/15/19, 06/2018 Sepsis. Fever resolved, tachycardia, leukocytosis, normal lactic acid. Septic pulmonary emboli/ lung cavitary lesions. Chronic, septic emboli in the past. covid neg CX gram pos cocci in clusters, staph aureus -continue IV vancomycin, will need picc line for moth exterminator abx -Id consult for further recommendations. -respiratory isolation. AFB ordered, no recent snf time, ? homelessness, seems most likley septic emboli -echocardiogram pending Opiate dependence. Uses IV crack cocaine and heroin -methadone -addiction service consulted Back spasm. no UTI -Lidocaine patch DVT prophylaxis with xarelto Attending: Dr. Garzon <Franny Pineda NP - Last Filed: 08/15/20 10:25> (2) Fever: Status: Acute <Franny Pineda NP - Last Filed: 08/15/20 10:25> (3) Uses drugs by injection: Status: Acute <Franny Pineda NP - Last Filed: 08/15/20 10:25> (4) Bacteremia: Status: Acute <Franny Pineda NP - Last Filed: 08/15/20 10:25> Assessment and Plan: Seen, discussed with RECEIVING DISTRIBUTION STATION OPERATOR. Staph bacteremia, likely MRSA, IE not ruled out. Continue Abx, ID will see her, will half-way Abx, which will be challenging giving active drug use. O/w I agree with RECEIVING DISTRIBUTION STATION OPERATOR note as above <Fran Garzon MD - Last Filed: 08/15/20 13:49>
[2020-08-15] MEDS: Rivaroxaban 10 MG TABLET PO (10:50)
[2020-08-15 11:59] VITALS: BP 102/57; PULSE 93; RESP 18; TEMP 36.4; O2SAT 96
--- NOTE | 2020-08-15 13:14 | MHC.CM.PN ---
CM met with patient who reports she is homeless but has been staying with a friend in [place] and goes to methadone clinic in [place]. Patient is independent and has history of IVDA, states she has been to [facility] in the past. Patient will need assisted IV ABT, agreed to referral to [facility]. Patient will need BLS transportation on discharge. Patient does not have a HCP and declines filling one out today. Referral placed via [employer]scripts. CM will continue to follow patient for discharge needs.
--- NOTE | 2020-08-15 13:16 | MHC.CLN ---
RE: CONSULT FOR WT LOSS PREVIOUS WT HX REVEALS UBW 152# NO EVIDENCE OF WT LOSS AND PT IS OBESE FOR HT; BMI 31 PT REMAINS LEVEL 2 NUTRITION RISK
--- NOTE | 2020-08-15 13:42 | HO.ADDICT_ITS ---
History of Present Illness Date of Service: 08/15/2020 Chief Complaint: Pulmonary Septic emboli Reason for Consult: ? methadone increase Requesting physician: Franny Pineda Discussed with referring provider: Yes Sources of Information: patient interviewed and chart reviewed HPI Narrative: Patient is a 29 year old female with OUD, currently medically admitted with ? pulmonary septic emboli. Consult requested as patient was requesting increase of current methadone dose (85mg QD). Patient seen in room 483. Laying in bed, lights off, drapes closed--although, awake, alert and engaged in interview. Patient vocalizing frustration and exhaustion with repeated drug use related infections. Patient reports she had been doing well on methadone for some time and was abstaining from opiates. She continued to use cocaine and she believes her cocaine was being cut with fentanyl which then led to increase in cravings for opioids. Patient requesting increase in methadone for this reason. Denies any withdrawal sx. Is experiencing lower back/flank pain and generalized malaise. Reports that lidocaine patches are helpful Review of Systems Constitutional: Reports as per HPI Diagnostics Vital Signs (24Hr): Vital Signs - 24 hr 08/14/20 14:15 08/14/20 17:38 08/14/20 20:18 Temperature 98.9 F 98.2 F Pulse Rate 96 99 99 Respiratory Rate 15 18 19 Blood Pressure 109/66 104/52 L 101/59 L Pulse Oximetry 100 100 100 08/14/20 23:29 08/15/20 04:00 08/15/20 07:57 Temperature 98.0 F 98.5 F 98.1 F Pulse Rate 92 83 101 H Respiratory Rate 18 18 20 Blood Pressure 98/60 117/58 L 115/59 L Pulse Oximetry 92 96 94 08/15/20 11:59 Temperature 97.6 F Pulse Rate 93 Respiratory Rate 18 Blood Pressure 102/57 L Pulse Oximetry 96 Body Mass Index 31.3 Labs Results: 08/15/20 04:32 08/15/20 04:32 Labs: Laboratory Results - last 48 hr 08/13/20 08/13/20 08/13/20 19:07 19:07 19:07 WBC RBC Hgb Hct MCV MCH MCHC RDW Plt Count MPV Immature Gran % (Auto) Neut % (Auto) Lymph % (Auto) Bullock % (Auto) Eos % (Auto) Baso % (Auto) Lymph # (Auto) Bullock # (Auto) Eos # (Auto) Baso # (Auto) Abs Immat Gran (auto) Absolute Neuts (auto) Absolute Nucleated RBC Nucleated RBC % (auto) ESR Sodium Potassium Chloride Carbon Dioxide Anion Gap BUN Creatinine Estim Creat Clear Calc Estimated GFR Random Glucose Lactic Acid Calcium Total Bilirubin AST ALT Alkaline Phosphatase Total Protein Albumin Urine Color DARK YELLOW Urine Appearance CLEAR Urine pH 6.0 Ur Specific [place] 1.020 Urine Protein 1+ H Urine Glucose (UA) NEG Urine Ketones NEG Urine Blood TRACE Urine Nitrite NEG Ur Leukocyte Esterase NEG Urine RBC 1-4 Urine WBC 1-4 Ur Squamous Epith Cells 2+ Urine Bacteria NONE Hyaline Casts 0-2 Granular Casts 0-2 Urine Test NEGATIVE Urine Opiates Screen POSITIVE H Ur Barbiturates Screen Not Detected Ur Phencyclidine Scrn Not Detected Ur Amphetamines Screen Not Detected U Benzodiazepines Scrn Not Detected Urine Cocaine Screen POSITIVE H U Marijuana (THC) Screen POSITIVE H COVID-19 (CRISTEL) COVID-19 Modern[facility] 08/13/20 08/13/20 08/13/20 19:18 20:00 20:00 WBC 14.5 H RBC 4.69 Hgb 12.3 Hct 36.6 L MCV 78.0 L MCH 26.2 L MCHC 33.6 RDW 15.2 Plt Count 113 L MPV 10.5 Immature Gran % (Auto) 0.6 H Neut % (Auto) 76.1 H Lymph % (Auto) 17.8 L Bullock % (Auto) 5.2 Eos % (Auto) 0.1 Baso % (Auto) 0.2 Lymph # (Auto) 2.6 Bullock # (Auto) 0.8 Eos # (Auto) 0.0 Baso # (Auto) 0.0 Abs Immat Gran (auto) 0.09 H Absolute Neuts (auto) 11.1 H Absolute Nucleated RBC 0.000 Nucleated RBC % (auto) 0.0 ESR Sodium 133 L Potassium 4.0 Chloride 93 L Carbon Dioxide 27 Anion Gap 17 BUN 15 Creatinine 0.76 Estim Creat Clear Calc 124.0 Estimated GFR > 60 Random Glucose 81 Lactic Acid Calcium 8.3 L Total Bilirubin 1.0 AST 14 ALT 12 Alkaline Phosphatase 136 H Total Protein 7.3 Albumin 3.5 Urine Color Urine Appearance Urine pH Ur Specific [place] Urine Protein Urine Glucose (UA) Urine Ketones Urine Blood Urine Nitrite Ur Leukocyte Esterase Urine RBC Urine WBC Ur Squamous Epith Cells Urine Bacteria Hyaline Casts Granular Casts Urine Test Urine Opiates Screen Ur Barbiturates Screen Ur Phencyclidine Scrn Ur Amphetamines Screen U Benzodiazepines Scrn Urine Cocaine Screen U Marijuana (THC) Screen COVID-19 (CRISTEL) Negative COVID-19 Clin Com See Note 08/13/20 08/14/20 08/14/20 20:00 01:09 06:42 WBC 12.7 H RBC 4.11 L Hgb 10.8 L Hct 32.0 L MCV 77.9 L MCH 26.3 L MCHC 33.8 RDW 15.3 Plt Count 103 L MPV 10.7 Immature Gran % (Auto) 0.9 H Neut % (Auto) 74.1 H Lymph % (Auto) 15.7 L Bullock % (Auto) 8.9 Eos % (Auto) 0.1 Baso % (Auto) 0.3 Lymph # (Auto) 2.0 Bullock # (Auto) 1.1 Eos # (Auto) 0.0 Baso # (Auto) 0.0 Abs Immat Gran (auto) 0.11 H Absolute Neuts (auto) 9.4 H Absolute Nucleated RBC 0.000 Nucleated RBC % (auto) 0.0 ESR 23 H Sodium Potassium Chloride Carbon Dioxide Anion Gap BUN Creatinine Estim Creat Clear Calc Estimated GFR Random Glucose Lactic Acid 0.8 Calcium Total Bilirubin AST ALT Alkaline Phosphatase Total Protein Albumin Urine Color Urine Appearance Urine pH Ur Specific [place] Urine Protein Urine Glucose (UA) Urine Ketones Urine Blood Urine Nitrite Ur Leukocyte Esterase Urine RBC Urine WBC Ur Squamous Epith Cells Urine Bacteria Hyaline Casts Granular Casts Urine Test Urine Opiates Screen Ur Barbiturates Screen Ur Phencyclidine Scrn Ur Amphetamines Screen U Benzodiazepines Scrn Urine Cocaine Screen U Marijuana (THC) Screen COVID-19 (CRISTEL) COVID-19 Clin Com 08/14/20 08/15/20 08/15/20 06:42 04:32 04:32 WBC 16.4 H RBC 3.89 L Hgb 10.0 L Hct 30.2 L MCV 77.6 L MCH 25.7 L MCHC 33.1 RDW 15.6 Plt Count 111 L MPV 10.1 Immature Gran % (Auto) 1.1 H Neut % (Auto) 70.4 Lymph % (Auto) 19.5 L Bullock % (Auto) 8.7 Eos % (Auto) 0.1 Baso % (Auto) 0.2 Lymph # (Auto) 3.2 Bullock # (Auto) 1.4 H Eos # (Auto) 0.0 Baso # (Auto) 0.0 Abs Immat Gran (auto) 0.18 H Absolute Neuts (auto) 11.5 H Absolute Nucleated RBC 0.000 Nucleated RBC % (auto) 0.0 ESR Sodium 135 134 L Potassium 3.9 4.2 Chloride 100 101 Carbon Dioxide 29 25 Anion Gap 10 L 12 BUN 16 11 Creatinine 0.75 0.61 Estim Creat Clear Calc 125.6 154.4 Estimated GFR > 60 > 60 Random Glucose 106 98 Lactic Acid Calcium 7.6 L D 7.6 L Total Bilirubin AST ALT Alkaline Phosphatase Total Protein Albumin Urine Color Urine Appearance Urine pH Ur Specific [place] Urine Protein Urine Glucose (UA) Urine Ketones Urine Blood Urine Nitrite Ur Leukocyte Esterase Urine RBC Urine WBC Ur Squamous Epith Cells Urine Bacteria Hyaline Casts Granular Casts Urine Test Urine Opiates Screen Ur Barbiturates Screen Ur Phencyclidine Scrn Ur Amphetamines Screen U Benzodiazepines Scrn Urine Cocaine Screen U Marijuana (THC) Screen COVID-19 (CRISTEL) COVID-19 Clin Com Imaging Radiology Impressions: ITS Impressions Chest CT 08/13/20 17:25 IMPRESSION: Multiple worsening cavitary lesions in the lungs. Septic emboli or fungal infection are considerations. These certainly can be associated with hemoptysis. Marked hepatosplenomegaly without ascites Abdomen/Pelvis CT 08/13/20 17:26 IMPRESSION: Multiple worsening cavitary lesions in the lungs. Septic emboli or fungal infection are considerations. These certainly can be associated with hemoptysis. Marked hepatosplenomegaly without ascites Mental Status Exam Mental Status Exam Patient Appearance: Appropriate Patient Orientation: Person, Place, Time and Situation Level of Consciousness: Awake, Appropriate and Alert Patient Behavior: Appropriate Mood Description: Appropriate Affect Description: Appropriate Patient Cognition Impaired: No Ability to Follow Directions: Excellent Speech Pattern: Clear Hallucinations: None Thought Process: Intact Thought Content: positive for Intact and positive for Goal Oriented Judgement: Good Medications Medications Current Medications Generic Name Dose Route Start Last Admin Trade Name Freq PRN Reason Stop Dose Admin Acetaminophen 650 mg 08/14/20 01:51 08/14/20 21:04 Acetaminophen 325 Mg Tablet PO 650 mg Q6H PRN Administration Pain, Mild (Pain Scale 1-3) Dextrose/Sodium Chloride 1,000 mls @ 100 mls/hr 08/14/20 02:00 08/15/20 08:06 D51/2ns IVCONT 100 mls/hr .Q10H [place] Administration Vancomycin HCl 1,250 mg/ 250 mls @ 166.667 mls/hr 08/14/20 15:00 08/15/20 05:58 Sodium Chloride IV Infused Q12H [place] Infusion Lidocaine 1 patch 08/15/20 09:00 08/15/20 08:07 Lidocaine 4 % Patch Adh..Patch TRANSDERMA 1 patch DAILY [place] Administration Protocol Melatonin 6 mg 08/14/20 20:35 08/14/20 21:04 Melatonin 3 Mg Tablet PO 6 mg BEDTIME PRN Administration Insomnia Methadone HCl 80 mg 08/14/20 13:55 08/15/20 08:07 Methadone Hcl 1 Mg/0.1 Ml Oral.Conc PO 80 mg DAILY [place] Administration Pharmacy Consult 1 each 08/14/20 01:02 Consult Rx Vancomycin Dosing MISCELLANE DAILY PRN Consult order Pharmacy Consult 1 each 08/14/20 01:50 Consult Rx Vancomycin Dosing MISCELLANE DAILY PRN Consult order Rivaroxaban 10 mg 08/15/20 10:30 08/15/20 10:50 Rivaroxaban 10 Mg Tablet PO 10 mg DAILY [place] Administration Senna 17.2 mg 08/14/20 01:51 Sennosides 8.6 Mg Tablet PO BEDTIME PRN Constipation Sodium Chloride 3 ml 08/14/20 08:00 08/15/20 08:06 0.9 % Sodium Chloride Flush 3 Ml Syringe IVFLUSH 3 ml QSHIFT [place] Administration Allergies Allergies Allergy/AdvReac Type Severity Reaction Status Date / Time Bleach (Sodium Hypochlorite) Allergy Unknown HIVES Verified 08/13/20 20:38 [BLEACH (SODIUM HYPOCHLORITE)] Sulfa (Sulfonamide Allergy Unknown HIVES Verified 08/13/20 20:38 Antibiotics) [SULFA (SULFONAMIDE ANTIBIOTICS)] diflunisal [From DOLOBID] AdvReac Unknown NAUSEA & Verified 08/13/20 20:38 VOMITING hydrocodone [HYDROCODONE] AdvReac Unknown AGITATION Verified 08/13/20 20:38 ketamine [KETAMINE] AdvReac Unknown AGITATION Verified 08/13/20 20:38 nitrofurantoin AdvReac Unknown NAUSEA & Verified 08/13/20 20:38 [From MACROBID] VOMITING Assessment & Plan Assessment & Plan (1) Opioid use disorder: Status: Acute Code(s): F11.99 - Opioid use, unspecified with unspecified opioid-induced disorder Recommendations: * Continue methadone at current outpatient dose. Any increase would have to be discussed with OTP. * Continue to treat pain as appropriate with analgesics * Harm reduction discussion * Will follow up tomrw Greater than 50% of the session was spent on counseling and/or coordination of care [facility] Past Medical History Medical History (Updated 08/15/20 @ 16:22 by Mickie Marcos CNP) Bacteremia Social History Social History Household Members: Significant Other Housing: Homeless Do you presently have visiting nurse or other home services: No Alcohol intake: current Smoking Status: Current every day smoker Tobacco Type: Cigarette Smoked in Last 30 Days: Yes Patient Interested in Nicotine Replacement: Yes Patient Given Instructions on How to Stop Smoking: No Second Hand Smoke Exposure: No Use of substances other than those prescribed or required for medical reasons: Yes Substance Use Type: Crack/Cocaine, Heroin, IV Drugs, Marijuana and Sedatives Substance Use Frequency: Chronic Longstanding Last Used Substance: Just Prior to Admission Currently Displaying Signs/Symptoms of Drug Intoxication Withdrawal: No Any prior treatment program specific to substance use: Yes Have you been hit, kicked, punched, or otherwise hurt by someone within the past year? If so, by whom?: No Do you feel safe in your current relationship?: Yes Is there a partner from a previous relationship who is making you feel unsafe now?: No Are you made to feel afraid or neglected: No Advance Directives: No Advance Directives Information Provided: No Do you have thoughts of harming others: None Do you have a plan to hurt others: No Plan Recently lost weight without trying: Yes How much weight loss: Unsure Eating poorly because of decreased appetite: No Nutrition screen score: 4 Nutrition Risks: Acute nausea or vomiting x1 week Patient : No : No Poor oral hygiene: Yes service: No Current occupational status: disabled
[2020-08-15] MEDS: Metoclopramide HCl 10 MG/2 ML VIAL 5 MG IVPUSH (14:20)
[2020-08-15] MEDS: Acetaminophen 325 MG TABLET 650 MG PO (14:21)
[2020-08-15 15:51] VITALS: BP 100/56; PULSE 100; RESP 20; TEMP 36.1; O2SAT 95
--- NOTE | 2020-08-15 16:08 | PC.NURSE ---
Addendum entered by Nakia Newman RN 08/15/20 16:31: no vanco trough result yet,lab contacted by this RN,should be another 30 min. Original Note: 1500 vanco dose not given yet,awaiting vanco trough result.
--- NOTE | 2020-08-15 16:10 | P.CNID_ITS ---
History of Present Illness Data of Consult Service Date: 08/15/20 Requesting physician: Yury Wood Primary Care Provider: Tere Physician HPI Reason for consult: bacteremia She presents to hospital with cough,malaise and chills She has cavitary lesions lung She has staph aureus blood Review of Systems Review of Systems: Yes Unobtainable due to mental condition PMFSH Past Medical History Medical History (Updated 08/15/20 @ 16:17 by Светлана Hannon MD) Bacteremia Social History Social History Household Members: Significant Other Housing: Homeless Do you presently have visiting nurse or other home services: No Alcohol intake: current Smoking Status: Current every day smoker Tobacco Type: Cigarette Smoked in Last 30 Days: Yes Patient Interested in Nicotine Replacement: Yes Patient Given Instructions on How to Stop Smoking: No Second Hand Smoke Exposure: No Use of substances other than those prescribed or required for medical reasons: Yes Substance Use Type: Crack/Cocaine, Heroin, IV Drugs, Marijuana and Sedatives Substance Use Frequency: Chronic Longstanding Last Used Substance: Just Prior to Admission Currently Displaying Signs/Symptoms of Drug Intoxication Withdrawal: No Any prior treatment program specific to substance use: Yes Have you been hit, kicked, punched, or otherwise hurt by someone within the past year? If so, by whom?: No Do you feel safe in your current relationship?: Yes Is there a partner from a previous relationship who is making you feel unsafe now?: No Are you made to feel afraid or neglected: No Advance Directives: No Advance Directives Information Provided: No Do you have thoughts of harming others: None Do you have a plan to hurt others: No Plan Recently lost weight without trying: Yes How much weight loss: Unsure Eating poorly because of decreased appetite: No Nutrition screen score: 4 Nutrition Risks: Acute nausea or vomiting x1 week Patient : No : No Poor oral hygiene: Yes service: No Current occupational status: disabled Meds Allergies Allergy/AdvReac Type Severity Reaction Status Date / Time Bleach (Sodium Hypochlorite) Allergy Unknown HIVES Verified 08/13/20 20:38 [BLEACH (SODIUM HYPOCHLORITE)] Sulfa (Sulfonamide Allergy Unknown HIVES Verified 08/13/20 20:38 Antibiotics) [SULFA (SULFONAMIDE ANTIBIOTICS)] diflunisal [From DOLOBID] AdvReac Unknown NAUSEA & Verified 08/13/20 20:38 VOMITING hydrocodone [HYDROCODONE] AdvReac Unknown AGITATION Verified 08/13/20 20:38 ketamine [KETAMINE] AdvReac Unknown AGITATION Verified 08/13/20 20:38 nitrofurantoin AdvReac Unknown NAUSEA & Verified 08/13/20 20:38 [From MACROBID] VOMITING Active Medications: Current Medications Generic Name Dose Route Start Last Admin Trade Name Freq PRN Reason Stop Dose Admin Acetaminophen 650 mg 08/14/20 01:51 08/15/20 14:21 Acetaminophen 325 Mg Tablet PO 650 mg Q6H PRN Administration Pain, Mild (Pain Scale 1-3) Dextrose/Sodium Chloride 1,000 mls @ 100 mls/hr 08/14/20 02:00 08/15/20 08:06 D51/2ns IVCONT 100 mls/hr .Q10H [place] Administration Vancomycin HCl 1,250 mg/ 250 mls @ 166.667 mls/hr 08/14/20 15:00 08/15/20 05:58 Sodium Chloride IV Infused Q12H [place] Infusion Lidocaine 1 patch 08/15/20 09:00 08/15/20 08:07 Lidocaine 4 % Patch Adh..Patch TRANSDERMA 1 patch DAILY [place] Administration Protocol Melatonin 6 mg 08/14/20 20:35 08/14/20 21:04 Melatonin 3 Mg Tablet PO 6 mg BEDTIME PRN Administration Insomnia Methadone HCl 80 mg 08/14/20 13:55 08/15/20 08:07 Methadone Hcl 1 Mg/0.1 Ml Oral.Conc PO 80 mg DAILY [place] Administration Metoclopramide HCl 5 mg 08/15/20 14:11 08/15/20 14:20 Metoclopramide Hcl 10 Mg/2 Ml Vial IVPUSH 5 mg Q6H PRN Administration Nausea Pharmacy Consult 1 each 08/14/20 01:02 Consult Rx Vancomycin Dosing MISCELLANE DAILY PRN Consult order Pharmacy Consult 1 each 08/14/20 01:50 Consult Rx Vancomycin Dosing MISCELLANE DAILY PRN Consult order Rivaroxaban 10 mg 08/15/20 10:30 08/15/20 10:50 Rivaroxaban 10 Mg Tablet PO 10 mg DAILY [place] Administration Senna 17.2 mg 08/14/20 01:51 Sennosides 8.6 Mg Tablet PO BEDTIME PRN Constipation Sodium Chloride 3 ml 08/14/20 08:00 08/15/20 08:06 0.9 % Sodium Chloride Flush 3 Ml Syringe IVFLUSH 3 ml QSHIFT [facility] Administration Home Medications Medication Instructions Recorded Confirmed Last Taken Type methadone [Methadone Intensol] 85 mg PO DAILY 08/14/20 08/14/20 08/13/20 History Physical Exam Vital Signs: Vital Signs: Last Vital Signs Temp 97.0 F 08/15/20 15:51 Pulse 100 08/15/20 15:51 Resp 20 08/15/20 15:51 BP 100/56 L 08/15/20 15:51 Pulse Ox 95 08/15/20 15:51 Body Mass Index 31.3 Const: General: no acute distress Orientation/consciousness: patient oriented x3 HENMT: Head: Yes normal to inspection Mouth: Normal oral and palatal mucosa present Eyes: General: appearance normal, both eyes and all related structures Resp: Effort & Inspection: normal respiratory effort Cardio: Rate: regular rate Rhythm: regular rhythm Heart sounds: Murmur heart sound present (2/6 KALYN) GI: Palpation (GI): Soft to palpation and nontender : General: Yes no CVA tenderness Back/Spine/Pelvis: Back: no CVA tenderness Skin: General skin exam: no rashes or lesions noted Neuro: General: patient oriented x3 Results Labs CBC & Chem 7: 08/15/20 04:32 08/15/20 04:32 Labs: Short CBC 08/15/20 Range/Units 04:32 WBC 16.4 H (4.8-10.8) X10*3/uL Hgb 10.0 L (12.0-16.0) g/dl Hct 30.2 L (37-47) % Plt Count 111 L (160-400) X10*3/uL BMP 08/15/20 04:32 Sodium 134 L Potassium 4.2 Chloride 101 Carbon Dioxide 25 BUN 11 Creatinine 0.61 Calcium 7.6 L Microbiology Microbiology Results: Microbiology 08/14/20 01:25 Blood - Venous Blood Culture - Preliminary Staphylococcus aureus 08/14/20 01:17 Blood - Venous Blood Culture - Preliminary Staphylococcus aureus 08/14/20 09:17 Sputum - Expectorated Gram Stain - Final 08/14/20 09:17 Sputum - Expectorated Sputum Culture - Preliminary Normal so far. 08/14/20 01:07 Blood - Venous Blood Culture - Final 08/14/20 01:07 Blood - Venous Blood Culture - Final Assessment and Plan (1) Bacteremia: Problem details: She has staph aureus bacteremia Cavitary lesions are due to bacteremia,probable endocarditis There is no tuberculosis history or lymphadenopathy Status: Acute Would continue Vancomycin Would await cultures No need for respiratory isolation (2) Cavitary pneumonia: Status: Acute
[2020-08-15 16:48] LABS: Vancomycin Trough 5.8 mcg/mL (10.0-20.0)
[2020-08-15 19:51] VITALS: BP 93/55; PULSE 84; RESP 18; TEMP 36.3; O2SAT 94
[2020-08-15] MEDS: Cyclobenzaprine HCl 5 MG TABLET PO (23:51)
[2020-08-15 23:53] VITALS: BP 105/58; PULSE 111; RESP 18; TEMP 37.3; O2SAT 97
[2020-08-16] MEDS: vancomycin HCL 1,250 MG in 0.9 % Sodium Chloride 250 ML 166.67 MG IV (00:54)
[2020-08-16 03:34] VITALS: BP 123/66; PULSE 109; RESP 19; TEMP 37.1; O2SAT 95
[2020-08-16] MEDS: Acetaminophen 325 MG TABLET 650 MG PO ×3 (03:54→21:29)
[2020-08-16] MEDS: Dextrose 5 % and 0.45 % NaCl 1,000 ML 100 ML IVCONT ×2 (04:52→16:37)
[2020-08-16 07:27] VITALS: BP 94/60; PULSE 95; RESP 18; TEMP 37.5; O2SAT 97
--- NOTE | 2020-08-16 07:30 | CA_ITS ---
Transthoracic Echocardiogram Patient (Last, First, Middle): Yin Batista, Gender: Female Date of : 1990 Age: 29 Procedure Date: 08/16/2020 Procedure Type: Transthoracic Echocardiogram Location: [facility] [place] Height: 167.64 cm Weight: 68.04 kg BSA: 1.77 m2 Heart Rate: bpm BP: 122 / 66 mmHg Conversion Man: Referring MD: Yury Wood MD Symptoms: hx IVDA,endocarditis; p/w fever Study Quality: Good ECG Rhythm: Sinus Conclusions: - The left ventricular systolic function is low normal. The visually estimated ejection fraction is between 50-55%. - Moderately increased right ventricular cavity size. - Echodensity noted on the tricuspid valve leaflet(non septal, possibly posterior), measuring 2 x 0.7cm and 2.2 x 1.77 in different views. Septal leaflet appears contracted. There is also mal-coaptation of the leaflets. - There is severe tricuspid valve regurgitation. - Moderate pulmonary hypertension is present. Findings Left Ventricle Normal left ventricular cavity size. There is normal left ventricular wall thickness. The left ventricular systolic function is low normal. The visually estimated ejection fraction is between 50-55%. There is no evidence of regional wall motion abnormalities. Diastolic function is normal for age. Right Ventricle Moderately increased right ventricular cavity size. There is normal right ventricular systolic function. Atria The left atrium is normal in size. The right atrium is likely dilated. Aortic Valve There is a normal trileaflet aortic valve. There is no aortic valve stenosis. There is no aortic valve regurgitation. Mitral Valve The mitral valve appears normal. There is trace mitral valve regurgitation. There is no mitral valve stenosis. Pulmonic Valve The pulmonic valve was not well visualized. Tricuspid Valve There is severe tricuspid valve regurgitation. The right ventricular systolic pressure is 62 mmHg. Moderate pulmonary hypertension is present. Echodensity noted on the tricuspid valve leaflet(non septal, possibly posterior), measuring 2 x 0.7cm and 2.2 x 1.77 in different views. Septal leaflet appears contracted. There is also mal-coaptation of the leaflets. Great Vessels The aortic annulus, sinuses of valsalva, and asc aorta are normal in size. Venous The inferior vena cava is mildly dilated and collapses greater than 50% with inspiration. Pericardium/Pleural There is no evidence of pericardial effusion. Prior Study Comparison Changes noted compared to prior study dated: 06/27/2018. Location of vegetation in different tricuspid leaflet. Septal leaflet now appears contracted, possibly from prior endocarditis. Measurements 2D Linear Measurements LVOT Diam: 2.30 3.0+(-)1.3 cm Mitral Valve MV Pk E: 0.67 MV PK A: 0.90 MV Decel Time: 103.00 E/A: 0.80 E'Lateral: 15.80 E'Medial: 11.10 E/E' Med: 6.10 E/E' Lat: 4.30 PHT: 30.00 MVA PHT: 7.33 Decel [place]: 6.55 Aortic Valve AoV Pk Rosalio: 1.39 AoV Mn Rosalio: 0.93 AoV VTI: 0.30 AoV Pk Grad: 8.00 Aov Mn Grad: 5.00 ANGELA Cont.VTI: 2.60 LVOT LVOT Pk Rosalio: 0.85 LVOT Mn Rosalio: 0.56 LVOT VTI: 0.19 LVOT Pk Grad: 3.00 LVOT Mn Grad: 1.00 LVOT Diam: 2.30 LVOT Area: 4.15 Diastolic Function MV Pk E: 0.67 MV Pk A: 0.90 E/A: 0.80 E'Medial: 11.10 E/E' Med: 6.10 E' Laterial: 15.80 E/E' Lat: 4.30 Tricuspid Valve TR Pk Rosalio: 3.66 TR Pk Grad: 54.00 RA Press: 8.00 RVSP: 62.00 Pulmonary Valve PV Pk Rosalio: 1.18 Peak PV Grad: 6.00 Updated in Other Vendor System with Status of Final Bob Young MD electronically signed on 08/16/2020 1:21:31 PM with status of Final
[2020-08-16 08:21] LABS: MANUAL DIFF FLAG NO
[2020-08-16 08:26] LABS: Basophils Percent Auto 0.3 % (0-2); Eosinophils Percent Auto 0.2 % (0-4); Hematocrit 29.6 % (37-47); Hemoglobin 9.7 g/dl (12.0-16.0); Imm Gran Abs Auto 0.14 X10*3/uL (0.00-0.03); Imm Gran Pct Auto 0.9 % (0.0-0.4); Lymphocytes Percent Auto 25.6 % (20-40); Mean Corpuscular HGB Conc 32.8 g/dl (31.0-35.0); Mean Corpuscular Hemoglobin 25.7 pg (27.0-33.0); Mean Corpuscular Volume 78.5 fL (80-98); Mean Platelet Volume 10.2 fL (9.4-12.3); Monocytes Absolute Auto 1.2 X10*3/uL (0.1-1.2); Monocytes Percent Auto 7.7 % (2-11); Neutrophils Absolute Auto 10.2 X10*3/uL (2.0-8.3); Neutrophils Percent Auto 65.3 % (45-73); Platelet Count 157 X10*3/uL (160-400); Red Blood Count 3.77 X10*6/uL (4.20-5.50); Red Cell Distribution Width 15.4 % (11.0-16.0); White Blood Count 15.6 X10*3/uL (4.8-10.8)
[2020-08-16 08:53] LABS: Anion Gap 10 (12-20); Blood Urea Nitrogen 9 mg/dL (9-16); Calcium 7.4 mg/dL (8.4-10.2); Carbon Dioxide 27 mmol/L (22-29); Chloride 101 mmol/L (96-108); Creatinine Clr Calc Pharmacy 140.7; Estimated Glomerular Filt Rate > 60; Glucose Random 99 mg/dL (60-115); Potassium 4.1 mmol/L (3.3-5.1); Sodium 134 mmol/L (135-145)
[2020-08-16] MEDS: vancomycin HCL 1,250 MG in 0.9 % Sodium Chloride 250 ML 166.7 MG IV ×2 (09:22→18:47)
[2020-08-16] MEDS: Rivaroxaban 10 MG TABLET PO (09:23)
[2020-08-16] MEDS: 0.9 % Sodium Chloride Flush 3 ML SYRINGE IVFLUSH (09:23)
[2020-08-16] MEDS: Lidocaine 4 % Patch ADH..PATCH 1 PATCH TRANSDERMA (09:23)
--- NOTE | 2020-08-16 11:10 | P.PNIM_ITS ---
Subjective Subjective Date of Service: 08/16/20 <Franny Pineda NP - Last Filed: 08/16/20 11:14> 08/17/20 <Fran Garzon MD - Last Filed: 08/17/20 17:18> Interval History: Follow up septic emboli. Very tired, still with some back pain but improved. <Franny Pineda NP - Last Filed: 08/16/20 11:14> Physical Exam Vital Signs: Vital Signs: Last Vital Signs Temp 99.5 F 08/16/20 07:27 Pulse 95 08/16/20 07:27 Resp 18 08/16/20 07:27 BP 94/60 08/16/20 07:27 Pulse Ox 97 08/16/20 07:27 Body Mass Index 31.3 <Franny Pineda NP - Last Filed: 08/16/20 11:14> Appearing in no acute distress lung sounds are clear to auscultation heart regular rate rhythm, clear S1, S2 positive bowel sounds, abdomen is soft, nontender neuro patient is alert x3, no focal deficits Multiple scabbed areas to arms <Franny Pineda NP - Last Filed: 08/16/20 11:14> Objective Data Current Medications Generic Name Dose Route Start Last Admin Trade Name Freq PRN Reason Stop Dose Admin Acetaminophen 650 mg 08/14/20 01:51 08/16/20 03:54 Acetaminophen 325 Mg Tablet PO 650 mg Q6H PRN Administration Pain, Mild (Pain Scale 1-3) Cyclobenzaprine HCl 5 mg 08/15/20 23:13 08/15/20 23:51 Cyclobenzaprine Hcl 5 Mg Tablet PO 5 mg TID PRN Administration Muscle Spasm Dextrose/Sodium Chloride 1,000 mls @ 100 mls/hr 08/14/20 02:00 08/16/20 10:24 D51/2ns IVCONT 0 mls/hr .Q10H [place] Infusion Vancomycin HCl 1,250 mg/ 250 mls @ 166.667 mls/hr 08/15/20 17:00 08/16/20 09:22 Sodium Chloride IV 166.7 mls/hr Q8H [place] Administration Lidocaine 1 patch 08/15/20 09:00 08/16/20 09:23 Lidocaine 4 % Patch Adh..Patch TRANSDERMA 1 patch DAILY [place] Administration Protocol Melatonin 6 mg 08/14/20 20:35 08/14/20 21:04 Melatonin 3 Mg Tablet PO 6 mg BEDTIME PRN Administration Insomnia Methadone HCl 80 mg 08/14/20 13:55 08/16/20 09:23 Methadone Hcl 1 Mg/0.1 Ml Oral.Conc PO 80 mg DAILY [place] Administration Metoclopramide HCl 5 mg 08/15/20 14:11 08/15/20 14:20 Metoclopramide Hcl 10 Mg/2 Ml Vial IVPUSH 5 mg Q6H PRN Administration Nausea Pharmacy Consult 1 each 08/14/20 01:02 Consult Rx Vancomycin Dosing MISCELLANE DAILY PRN Consult order Pharmacy Consult 1 each 08/14/20 01:50 Consult Rx Vancomycin Dosing MISCELLANE DAILY PRN Consult order Rivaroxaban 10 mg 08/15/20 10:30 08/16/20 09:23 Rivaroxaban 10 Mg Tablet PO 10 mg DAILY [place] Administration Senna 17.2 mg 08/14/20 01:51 Sennosides 8.6 Mg Tablet PO BEDTIME PRN Constipation Sodium Chloride 3 ml 08/14/20 08:00 08/16/20 09:23 0.9 % Sodium Chloride Flush 3 Ml Syringe IVFLUSH 3 ml QSHIFT [place] Administration <Franny Pineda NP - Last Filed: 08/16/20 11:14> Labs CBC & Chem 7: : 08/17/20 05:19 08/17/20 05:19 <Franny Pineda NP - Last Filed: 08/16/20 11:14> Microbiology Microbiology Results: Microbiology 08/14/20 09:17 Sputum - Expectorated Gram Stain - Final 08/14/20 09:17 Sputum - Expectorated Sputum Culture - Final 08/15/20 14:48 Blood - Venous Blood Culture - Preliminary 08/15/20 14:48 Blood - Venous Blood Culture - Preliminary 08/14/20 01:25 Blood - Venous Blood Culture - Final Staphylococcus aureus 08/14/20 01:17 Blood - Venous Blood Culture - Final Staphylococcus aureus 08/14/20 01:07 Blood - Venous Blood Culture - Final 08/14/20 01:07 Blood - Venous Blood Culture - Final <Franny Pineda NP - Last Filed: 08/16/20 11:14> Assessment and Plan (1) Bacteremia: Status: Acute <Franny Pineda NP - Last Filed: 08/16/20 11:14> Assessment and Plan: 29-year-old female with a past medical history of anxiety, depression, PTSD, history of seizures, history of hep B, history of hep C, history of IV drug abuse, polysubstance abuse, opiate dependence on methadone, history of endocarditis presented with chest pain/ abdominal pain. CT scan sh owed cavitary lung lesions and pulmonary septic emboli. Admitted for further management. Endocarditis 12/15/19, 06/2018 Sepsis. Fever resolved, tachycardia, leukocytosis, normal lactic acid. Septic pulmonary emboli/ lung cavitary lesions. Chronic, septic emboli in the past. covid neg CX gram pos cocci in clusters, staph aureus, 2nd Blood cx also positive, recheck on 07/19 -continue IV vancomycin, will need picc line for nursing home abx -Id following -respiratory isolation dc -echocardiogram pending Opiate dependence. Uses IV crack cocaine and heroin -methadone -seen by addiction service, no change in methadone at this time. Back spasm. no UTI -Lidocaine patch -Warm compress DVT prophylaxis with xarelto Attending: Dr. Garzon <Franny Pineda NP - Last Filed: 08/16/20 11:14> (2) Cavitary pneumonia: Status: Acute <Franny Pineda NP - Last Filed: 08/16/20 11:14> (3) Uses drugs by injection: Status: Acute <Franny Pineda NP - Last Filed: 08/16/20 11:14> (4) Opioid use disorder: Status: Acute <Franny Pineda NP - Last Filed: 08/16/20 11:14> Assessment and Plan: I saw and examined the patient and discussed with mid level. Patient has IVDA history and has staph bacteremia and endocarditis on echo, latest blood cultures positive. Continue IV Vanco. O/w I agree with above <Fran Garzon MD - Last Filed: 08/17/20 17:18>
[2020-08-16 11:52] VITALS: BP 95/53; PULSE 95; RESP 18; TEMP 37.5; O2SAT 96
[2020-08-16] MEDS: Cyclobenzaprine HCl 5 MG TABLET PO ×2 (12:05→21:29)
[2020-08-16 15:43] VITALS: BP 108/58; PULSE 98; RESP 19; TEMP 36.8; O2SAT 97
[2020-08-16 18:01] LABS: Vancomycin Trough 11.2 mcg/mL (10.0-20.0)
[2020-08-16 19:54] VITALS: BP 110/58; PULSE 93; RESP 18; TEMP 36.7; O2SAT 95
[2020-08-17] VITALS (7 sets, daily range): BP systolic 97–120; BP diastolic 54–65; PULSE 86–105; RESP 18–23; TEMP 35.9–37.6; O2SAT 96–98
[2020-08-17] MEDS: vancomycin HCL 1,250 MG in 0.9 % Sodium Chloride 250 ML 166.7 MG IV (01:19)
[2020-08-17] MEDS: Acetaminophen 325 MG TABLET 650 MG PO ×3 (04:20→18:04)
[2020-08-17] MEDS: Cyclobenzaprine HCl 5 MG TABLET PO ×3 (04:20→21:11)
[2020-08-17 06:06] LABS: MANUAL DIFF FLAG NO
[2020-08-17 06:44] LABS: Basophils Percent Auto 0.3 % (0-2); Eosinophils Percent Auto 0.2 % (0-4); Hematocrit 31.2 % (37-47); Hemoglobin 10.3 g/dl (12.0-16.0); Imm Gran Abs Auto 0.11 X10*3/uL (0.00-0.03); Imm Gran Pct Auto 0.8 % (0.0-0.4); Lymphocytes Absolute Auto 3.2 X10*3/uL (1.2-4.9); Lymphocytes Percent Auto 23.7 % (20-40); Mean Corpuscular Hemoglobin 25.7 pg (27.0-33.0); Mean Corpuscular Volume 77.8 fL (80-98); Mean Platelet Volume 10.5 fL (9.4-12.3); Monocytes Percent Auto 7.5 % (2-11); Neutrophils Absolute Auto 9.2 X10*3/uL (2.0-8.3); Neutrophils Percent Auto 67.5 % (45-73); Platelet Count 162 X10*3/uL (160-400); Red Blood Count 4.01 X10*6/uL (4.20-5.50); Red Cell Distribution Width 15.4 % (11.0-16.0); White Blood Count 13.7 X10*3/uL (4.8-10.8)
[2020-08-17 06:52] LABS: Anion Gap 11 (12-20); Blood Urea Nitrogen 9 mg/dL (9-16); Calcium 7.6 mg/dL (8.4-10.2); Carbon Dioxide 24 mmol/L (22-29); Chloride 101 mmol/L (96-108); Creatinine Clr Calc Pharmacy 149.6; Estimated Glomerular Filt Rate > 60; Glucose Random 103 mg/dL (60-115); Potassium 4.2 mmol/L (3.3-5.1); Sodium 132 mmol/L (135-145)
[2020-08-17] MEDS: Lidocaine 4 % Patch ADH..PATCH 1 PATCH TRANSDERMA (10:02)
[2020-08-17] MEDS: 0.9 % Sodium Chloride Flush 3 ML SYRINGE IVFLUSH ×2 (10:04→17:07)
[2020-08-17] MEDS: Rivaroxaban 10 MG TABLET PO (10:06)
[2020-08-17] MEDS: vancomycin HCL 1,250 MG in 0.9 % Sodium Chloride 250 ML 166.67 MG IV ×2 (10:07→17:06)
--- NOTE | 2020-08-17 13:35 | MHC.RECOVRN ---
T/w met with pt to f/u after meeting with Mickie Marcos APRN on 08/15. Pt continues to want an increase in methadone dose, is unhappy that 80 mg is ordered as opposed to 85 mg pt is receiving at the [facility]. It was reinforced to pt that any change in methadone dose would need to come from [facility]. When t/w would begin to engage pt in recovery discussion, pt would begin discussing other things related to hospital stay. Pt c/o not being able to eat the food due to cardiac diet. Pt c/o pain in right shoulder from something that happened before I got here. T/w spoke with pts RN to update on pt report. RN to round shortly and hear pts concerns. T/w did provide contact information if pt would like to reach out to discuss recovery futher.
--- NOTE | 2020-08-17 14:09 | MHC.CLN ---
PT COMPAINING OF LIMITED FOOD ITEMS R/T CARDIAC DIET PER [facility] DIET CHANGED TO REGULAR
--- NOTE | 2020-08-17 15:40 | MHC.CM.PN ---
Patient continues on IV Vanco for bacteremtia. 2nd BC+. Discharge plan is to [facility] for group home IV ABT. Patient will need BLS transport. CM will continue to follow patient for discharge needs.
--- NOTE | 2020-08-17 17:19 | HO.PM.IMPN ---
Subjective Subjective Date of Service: 08/18/20 Interval History: Seen in follow-up for infectious endocarditis associated with MRSA bacteremia in the setting of IV drug use. Review of Systems Gen: no fever Resp: no sob, no cough CV: no chest, no [place]NE, no leg edema GI: No n/v, no abd pain Neuro: No confusion Physical Exam Vital Signs: Vital Signs: Last Vital Signs Temp 98.7 F 08/17/20 16:00 Pulse 89 08/17/20 16:00 Resp 19 08/17/20 16:00 BP 104/58 L 08/17/20 16:00 Pulse Ox 97 08/17/20 16:00 Body Mass Index 31.3 Const: Other: General: AO X 3, no acute distress Resp: CTA bilateral CVS: S1,S2,RRR GI: +BS, NT, no distention Skin: No rash Neuro: motor grossly intact, no weakness in legs, no urinary or stool incontinence Psych: appropriate affect Objective Data Current Medications Generic Name Dose Route Start Last Admin Trade Name Freq PRN Reason Stop Dose Admin Acetaminophen 650 mg 08/14/20 01:51 08/17/20 11:58 Acetaminophen 325 Mg Tablet PO 650 mg Q6H PRN Administration Pain, Mild (Pain Scale 1-3) Cyclobenzaprine HCl 5 mg 08/15/20 23:13 08/17/20 11:58 Cyclobenzaprine Hcl 5 Mg Tablet PO 5 mg TID PRN Administration Muscle Spasm Vancomycin HCl 1,250 mg/ 250 mls @ 166.667 mls/hr 08/15/20 17:00 08/17/20 17:06 Sodium Chloride IV 166.67 mls/hr Q8H [place] Administration Lidocaine 1 patch 08/15/20 09:00 08/17/20 10:02 Lidocaine 4 % Patch Adh..Patch TRANSDERMA 1 patch DAILY [place] Administration Protocol Melatonin 6 mg 08/14/20 20:35 08/14/20 21:04 Melatonin 3 Mg Tablet PO 6 mg BEDTIME PRN Administration Insomnia Methadone HCl 80 mg 08/14/20 13:55 08/17/20 10:04 Methadone Hcl 1 Mg/0.1 Ml Oral.Conc PO 80 mg DAILY [place] Administration Metoclopramide HCl 5 mg 08/15/20 14:11 08/15/20 14:20 Metoclopramide Hcl 10 Mg/2 Ml Vial IVPUSH 5 mg Q6H PRN Administration Nausea Pharmacy Consult 1 each 08/14/20 01:02 Consult Rx Vancomycin Dosing MISCELLANE DAILY PRN Consult order Pharmacy Consult 1 each 08/14/20 01:50 Consult Rx Vancomycin Dosing MISCELLANE DAILY PRN Consult order Rivaroxaban 10 mg 08/15/20 10:30 08/17/20 10:06 Rivaroxaban 10 Mg Tablet PO 10 mg DAILY [place] Administration Senna 17.2 mg 08/14/20 01:51 Sennosides 8.6 Mg Tablet PO BEDTIME PRN Constipation Sodium Chloride 3 ml 08/14/20 08:00 08/17/20 17:07 0.9 % Sodium Chloride Flush 3 Ml Syringe IVFLUSH 3 ml QSHIFT [place] Administration Labs CBC & Chem 7: 08/17/20 05:19 08/17/20 05:19 Microbiology Microbiology Results: Microbiology 08/15/20 14:48 Blood - Venous Blood Culture - Final Staphylococcus aureus 08/15/20 14:48 Blood - Venous Blood Culture - Final Staphylococcus aureus 08/14/20 09:17 Sputum - Expectorated Gram Stain - Final 08/14/20 09:17 Sputum - Expectorated Sputum Culture - Final 08/14/20 01:25 Blood - Venous Blood Culture - Final Staphylococcus aureus 08/14/20 01:17 Blood - Venous Blood Culture - Final Staphylococcus aureus 08/14/20 01:07 Blood - Venous Blood Culture - Final 08/14/20 01:07 Blood - Venous Blood Culture - Final Assessment and Plan (1) Opioid use disorder: Status: Acute (2) Bacteremia: Status: Acute (3) Cavitary pneumonia: Status: Acute (4) Fever: Status: Acute (5) Uses drugs by injection: Status: Acute Assessment and Plan: 29-year-old female with a past medical history of anxiety, depression, PTSD, history of seizures, history of hep B, history of hep C, history of IV drug abuse, polysubstance abuse, opiate dependence on methadone, history of endocarditis presented with chest pain/ abdominal pain. CT scan showed cavitary lung lesions and pulmonary septic emboli. Admitted for further management. Endocarditis 12/15/19, 06/2018 [place]ap[place] bacteremia, likely MRSA Septic emboli Tricuspid valve endocarditis --Continue Vanco, -repeat blood cultures 08/17 -follow Vanco level -Picc line once blood cultures clear Opiate dependence. continue Methadone Back spasm-- -Lidocaine patch -Warm compress -MRI to rule out diskitis DVT prophylaxis with xarelto
[2020-08-17] MEDS: Melatonin 3 MG TABLET 6 MG PO (21:11)
[2020-08-18] MEDS: vancomycin HCL 1,250 MG in 0.9 % Sodium Chloride 250 ML 166.67 MG IV ×3 (00:06→17:07)
[2020-08-18] MEDS: 0.9 % Sodium Chloride Flush 3 ML SYRINGE IVFLUSH ×3 (00:06→15:57)
[2020-08-18] MEDS: Acetaminophen 325 MG TABLET 650 MG PO ×3 (00:12→18:45)
[2020-08-18 03:19] VITALS: BP 101/62; PULSE 84; RESP 19; TEMP 35.9; O2SAT 95
[2020-08-18] MEDS: Cyclobenzaprine HCl 5 MG TABLET PO ×2 (06:06→18:45)
[2020-08-18 08:00] VITALS: BP 99/61; PULSE 96; RESP 20; TEMP 37.3; O2SAT 98
[2020-08-18] MEDS: Lidocaine 4 % Patch ADH..PATCH 1 PATCH TRANSDERMA (09:11)
[2020-08-18] MEDS: Rivaroxaban 10 MG TABLET PO (09:11)
[2020-08-18 10:52] VITALS: BP 111/67; PULSE 88; RESP 20; TEMP 36.8; O2SAT 97
[2020-08-18 15:09] VITALS: BP 113/56; PULSE 95; RESP 20; TEMP 36.4; O2SAT 95
--- NOTE | 2020-08-18 15:32 | HO.PM.IMPN ---
Subjective Subjective Date of Service: 08/18/20 Interval History: Seen in follow-up for infectious endocarditis, persistent bactremia Review of Systems Gen: no fever Resp: no sob, no cough CV: no chest, no [place], no leg edema GI: No n/v, no abd pain Neuro: No confusion Constitutional Constitutional: Reports as per HPI Physical Exam Vital Signs: Vital Signs: Last Vital Signs Temp 97.6 F 08/18/20 15:09 Pulse 95 08/18/20 15:09 Resp 20 08/18/20 15:09 BP 113/56 L 08/18/20 15:09 Pulse Ox 95 08/18/20 15:09 Body Mass Index 31.3 Const: Other: General: AO X 3, no acute distress Resp: CTA bilateral CVS: S1,S2,RRR GI: +BS, NT, no distention Skin: No rash Neuro: motor grossly intact, no weakness in legs, no urinary or stool incontinence Psych: appropriate affect Objective Data Current Medications Generic Name Dose Route Start Last Admin Trade Name Michaelq PRN Reason Stop Dose Admin Acetaminophen 650 mg 08/14/20 01:51 08/18/20 06:15 Acetaminophen 325 Mg Tablet PO 650 mg Q6H PRN Administration Pain, Mild (Pain Scale 1-3) Cyclobenzaprine HCl 5 mg 08/15/20 23:13 08/18/20 06:06 Cyclobenzaprine Hcl 5 Mg Tablet PO 5 mg TID PRN Administration Muscle Spasm Hydromorphone HCl 1 mg 08/17/20 18:18 Hydromorphone Hcl 1 Mg/Ml Syringe IVPUSH ONCE PRN Once before MRI Vancomycin HCl 1,250 mg/ 250 mls @ 166.667 mls/hr 08/15/20 17:00 08/18/20 10:58 Sodium Chloride IV Infused Q8H [place] Infusion Lidocaine 1 patch 08/15/20 09:00 08/18/20 09:11 Lidocaine 4 % Patch Adh..Patch TRANSDERMA 1 patch DAILY [place] Administration Protocol Melatonin 6 mg 08/14/20 20:35 08/17/20 21:11 Melatonin 3 Mg Tablet PO 6 mg BEDTIME PRN Administration Insomnia Methadone HCl 80 mg 08/14/20 13:55 08/18/20 09:09 Methadone Hcl 1 Mg/0.1 Ml Oral.Conc PO 80 mg DAILY [place] Administration Metoclopramide HCl 5 mg 08/15/20 14:11 08/15/20 14:20 Metoclopramide Hcl 10 Mg/2 Ml Vial IVPUSH 5 mg Q6H PRN Administration Nausea Pharmacy Consult 1 each 08/14/20 01:02 Consult Rx Vancomycin Dosing MISCELLANE DAILY PRN Consult order Pharmacy Consult 1 each 08/14/20 01:50 Consult Rx Vancomycin Dosing MISCELLANE DAILY PRN Consult order Rivaroxaban 10 mg 08/15/20 10:30 08/18/20 09:11 Rivaroxaban 10 Mg Tablet PO 10 mg DAILY [place] Administration Senna 17.2 mg 08/14/20 01:51 Sennosides 8.6 Mg Tablet PO BEDTIME PRN Constipation Sodium Chloride 3 ml 08/14/20 08:00 08/18/20 09:10 0.9 % Sodium Chloride Flush 3 Ml Syringe IVFLUSH 3 ml QSHIFT [place] Administration Labs CBC & Chem 7: 08/17/20 05:19 08/17/20 05:19 Microbiology Microbiology Results: Microbiology 08/17/20 18:28 Blood - Venous Blood Culture - Preliminary 08/15/20 14:48 Blood - Venous Blood Culture - Final Staphylococcus aureus 08/15/20 14:48 Blood - Venous Blood Culture - Final Staphylococcus aureus 08/14/20 09:17 Sputum - Expectorated Gram Stain - Final 08/14/20 09:17 Sputum - Expectorated Sputum Culture - Final 08/14/20 01:25 Blood - Venous Blood Culture - Final Staphylococcus aureus 08/14/20 01:17 Blood - Venous Blood Culture - Final Staphylococcus aureus 08/14/20 01:07 Blood - Venous Blood Culture - Final 08/14/20 01:07 Blood - Venous Blood Culture - Final Assessment and Plan (1) Opioid use disorder: Status: Acute (2) Bacteremia: Status: Acute (3) Cavitary pneumonia: Status: Acute (4) Fever: Status: Acute (5) Uses drugs by injection: Status: Acute Assessment and Plan: 29-year-old female with a past medical history of anxiety, depression, PTSD, history of seizures, history of hep B, history of hep C, history of IV drug abuse, polysubstance abuse, opiate dependence on methadone, history of endocarditis presented with chest pain/ abdominal pain. CT scan showed cavitary lung lesions and pulmonary septic emboli. Admitted for further management. Endocarditis 12/15/19, 06/2018 Stap[place] bacteremia, likely MRSA Septic emboli Tricuspid valve endocarditis --Continue Vanco, -repeat blood cultures 08/17 -follow Vanco level today -Picc line once blood cultures clear Opiate dependence. continue Methadone Back spasm-- -Lidocaine patch -Warm compress -MRI to rule out diskitis yesterday, she refused and still refusing, stating she had alread DVT prophylaxis with xarelto
[2020-08-18 15:38] LABS: Amphetamine Screen Urine Not Detected (Not Detect); Barbiturates, Urine Not Detected (Not Detect); Benzodiazepines Screen Urine Not Detected (Not Detect); Cannabinoid Screen Urine POSITIVE (Not Detect); Cocaine Screen Urine Not Detected (Not Detect); Opiate Screen Urine Not Detected (Not Detect); Phencyclidine Screen Urine Not Detected (Not Detect)
[2020-08-18 16:51] LABS: Vancomycin Trough 15.9 mcg/mL (10.0-20.0)
[2020-08-18 18:40] LABS: Creatinine Clr Calc Pharmacy 142.8; Estimated Glomerular Filt Rate > 60
[2020-08-18 19:01] VITALS: BP 127/68; PULSE 103; RESP 20; TEMP 36.8; O2SAT 99
--- NOTE | 2020-08-18 19:46 | PC.NURSE ---
Assumed care at 1715 - Plan for MRI at 6pm, but patient refusing. Left EJ IV causing pain with vanco running in. Attempted to flush and still hurting. No other IV access. Plan for PICC eventually, but refusing periph IV insertion at this time, unless it is a neck IV or PICC. Dr Garzon made aware of MRI refusal & loss of IV access. Plan to ask ER if available to do an external jugular IV. Medicated w/ PRN tylenol & muscle relaxer @ 9125.
[2020-08-18] MEDS: Melatonin 3 MG TABLET 6 MG PO (20:58)
[2020-08-18 23:25] VITALS: BP 109/64; PULSE 86; RESP 18; TEMP 36.9; O2SAT 97
[2020-08-19 03:39] VITALS: BP 97/55; PULSE 99; RESP 12; TEMP 36.6; O2SAT 95
[2020-08-19 08:00] VITALS: BP 102/58; PULSE 97; RESP 20; TEMP 37.1; O2SAT 97
[2020-08-19] MEDS: 0.9 % Sodium Chloride Flush 3 ML SYRINGE IVFLUSH ×3 (08:48→21:20)
[2020-08-19] MEDS: Acetaminophen 325 MG TABLET 650 MG PO ×3 (08:48→21:20)
[2020-08-19] MEDS: Rivaroxaban 10 MG TABLET PO (08:48)
[2020-08-19] MEDS: Lidocaine 4 % Patch ADH..PATCH 1 PATCH TRANSDERMA (08:55)
--- NOTE | 2020-08-19 09:56 | P.PNIM_ITS ---
Subjective Subjective Date of Service: 08/19/20 Interval History: Seen in follow-up for infectious endocarditis, last blood culture from 08/17 is thus far negative. She has no IV access and won't allow peripheral attempt Review of Systems Gen: no fever Resp: no sob, no cough CV: no chest, no [place], no leg edema GI: No n/v, no abd pain Neuro: No confusion, no weakness in legs back pain she says not new Constitutional Constitutional: Reports as per HPI Physical Exam Vital Signs: Vital Signs: Last Vital Signs Temp 98.7 F 08/19/20 08:00 Pulse 97 08/19/20 08:00 Resp 20 08/19/20 08:00 BP 102/58 L 08/19/20 08:00 Pulse Ox 97 08/19/20 08:00 Body Mass Index 31.3 Const: Other: General: AO X 3, no acute distress Resp: CTA bilateral CVS: S1,S2,RRR GI: +BS, NT, no distention Skin: No rash, scabs all over skin Neuro: motor grossly intact, no weakness in legs, no urinary or stool incontinence Psych: appropriate affect Objective Data Current Medications Generic Name Dose Route Start Last Admin Trade Name Freq PRN Reason Stop Dose Admin Acetaminophen 650 mg 08/14/20 01:51 08/19/20 08:48 Acetaminophen 325 Mg Tablet PO 650 mg Q6H PRN Administration Pain, Mild (Pain Scale 1-3) Cyclobenzaprine HCl 5 mg 08/15/20 23:13 08/18/20 18:45 Cyclobenzaprine Hcl 5 Mg Tablet PO 5 mg TID PRN Administration Muscle Spasm Hydromorphone HCl 1 mg 08/17/20 18:18 Hydromorphone Hcl 1 Mg/Ml Syringe IVPUSH ONCE PRN Once before MRI Vancomycin HCl 1,250 mg/ 250 mls @ 166.667 mls/hr 08/15/20 17:00 08/19/20 00:48 Sodium Chloride IV Not Given Q8H [place] Lidocaine 1 patch 08/15/20 09:00 08/19/20 08:55 Lidocaine 4 % Patch Adh..Patch TRANSDERMA 1 patch DAILY [place] Administration Protocol Melatonin 6 mg 08/14/20 20:35 08/18/20 20:58 Melatonin 3 Mg Tablet PO 6 mg BEDTIME PRN Administration Insomnia Methadone HCl 80 mg 08/14/20 13:55 08/19/20 08:50 Methadone Hcl 1 Mg/0.1 Ml Oral.Conc PO 80 mg DAILY [place] Administration Metoclopramide HCl 5 mg 08/15/20 14:11 08/15/20 14:20 Metoclopramide Hcl 10 Mg/2 Ml Vial IVPUSH 5 mg Q6H PRN Administration Nausea Pharmacy Consult 1 each 08/14/20 01:02 Consult Rx Vancomycin Dosing MISCELLANE DAILY PRN Consult order Pharmacy Consult 1 each 08/14/20 01:50 Consult Rx Vancomycin Dosing MISCELLANE DAILY PRN Consult order Rivaroxaban 10 mg 08/15/20 10:30 08/19/20 08:48 Rivaroxaban 10 Mg Tablet PO 10 mg DAILY [place] Administration Senna 17.2 mg 08/14/20 01:51 Sennosides 8.6 Mg Tablet PO BEDTIME PRN Constipation Sodium Chloride 3 ml 08/14/20 08:00 08/19/20 08:48 0.9 % Sodium Chloride Flush 3 Ml Syringe IVFLUSH 3 ml QSHIFT [facility] Administration Labs CBC & Chem 7: 08/17/20 05:19 08/18/20 18:03 Microbiology Microbiology Results: Microbiology 08/17/20 18:28 Blood - Venous Blood Culture - Preliminary Staphylococcus aureus 08/18/20 05:22 Blood - Venous Blood Culture - Preliminary No growth after 24 hours. 08/18/20 05:22 Blood - Venous Blood Culture - Preliminary No growth after 24 hours. 08/17/20 18:28 Blood - Venous Blood Culture - Preliminary No growth after 24 hours. 08/15/20 14:48 Blood - Venous Blood Culture - Final Staphylococcus aureus 08/15/20 14:48 Blood - Venous Blood Culture - Final Staphylococcus aureus 08/14/20 09:17 Sputum - Expectorated Gram Stain - Final 08/14/20 09:17 Sputum - Expectorated Sputum Culture - Final 08/14/20 01:25 Blood - Venous Blood Culture - Final Staphylococcus aureus 08/14/20 01:17 Blood - Venous Blood Culture - Final Staphylococcus aureus 08/14/20 01:07 Blood - Venous Blood Culture - Final 08/14/20 01:07 Blood - Venous Blood Culture - Final Assessment and Plan (1) Opioid use disorder: Status: Acute (2) Bacteremia: Status: Acute (3) Cavitary pneumonia: Status: Acute (4) Fever: Status: Acute (5) Uses drugs by injection: Status: Acute Assessment and Plan: 29-year-old female with a past medical history of anxiety, depression, PTSD, history of seizures, history of hep B, history of hep C, history of IV drug abuse, polysubstance abuse, opiate dependence on methadone, history of endocarditis presented with chest pain/ abdominal pain. CT scan showed cavitary lung lesions and pulmonary septic emboli. Admitted for further management. Endocarditis 12/15/19, 06/2018 [place]ap[place] bacteremia, likely MRSA Septic emboli Tricuspid valve endocarditis --Continue Vanco, -repeat blood cultures 08/17, so far negative -Vanco level 15 on 08/18 -Picc line once blood cultures clear -Mid line today Opiate dependence. continue Methadone Back spasm-- -Lidocaine patch -Warm compress -MRI to rule out diskitis yesterday--she continues to refuse MRI, no neuro changes in the legs DVT prophylaxis with xarelto
--- NOTE | 2020-08-19 10:32 | PC.NURSE ---
order for midline obtained and reviewed. met pt at bedside to discuss midline insertion. pt adamantly refusing midline at this time, no i already told them it doesnt work...they tried it in the er...if they dont like it they can transfer me to [facility] pt states. tried making pt aware this is a different type of us guided iv catheter, not the same as the one attempted in the er, though pt still refusing. offered to take a look at bilateral upper extremity vessels with us to assess for patent veins usable for midline, prior to any insertion attempt is made, but pt still refusing. primary rn sofie and ordering physician made aware.
[2020-08-19] MEDS: ALPRAZolam 0.5 MG TABLET PO (11:15)
[2020-08-19] MEDS: vancomycin HCL 1,250 MG in 0.9 % Sodium Chloride 250 ML 166.67 MG IV (12:13)
--- NOTE | 2020-08-19 12:17 | HO.MIDLINE_ITS ---
PICC Line Insertion MIDLINE INSERTION Diagnosis: BACTEREMIA Indication: NEEDS IV ACCESS FOR IV ANTIBIOTICS Pertinent Labs: REVIEWED Technique: Using sterile technique including cap and mask, glove and drape, the RIGHT arm was prepped and draped in the usual sterile fashion of full barrier technique with CHG. Using ultrasound guidance, BASILIC vein access was obtained IN SINGLE ATTEMPT BY THIS RN. A SINGLE LUMEN, NON-PASV, (20G x 8CM) MIDLINE was positioned. The procedure was performed in [facility] Ultrasound was used to document vein patency and for needle entry. A formal ultrasound picture was recorded. [employer] has released the line for use and it is currently dressed with a StatLock, Tegaderm, and CHG disc. Verification has been performed for blood return and line patency. PT TOLERATED VERY WELL, REMAINED CALM/COOPERATIVE THROUGHOUT MIDLINE INSERTION. Arm Circumference: 26 CM Equipment: [employer] POWERGLIDE PRO MIDLINE Catheter Type: SINGLE LUMEN, NON-PASV, (20G x 8 CM) Lot #: [id number]
--- NOTE | 2020-08-19 14:07 | PM.IDPN ---
Subjective Subjective Date of Service: 08/19/20 Interval History: she feels better she had right knee swelling,now resolved she has no other concerns Objective Data Labs CBC & Chem 7: 08/17/20 05:19 08/18/20 18:03 Labs: Laboratory Results - last 24 hr 08/18/20 08/18/20 08/18/20 15:00 16:09 18:03 Creatinine 0.66 Estim Creat Clear Calc 142.8 Estimated GFR > 60 Vancomycin Trough 15.9 Urine Opiates Screen Not Detected Ur Barbiturates Screen Not Detected Ur Phencyclidine Scrn Not Detected Ur Amphetamines Screen Not Detected U Benzodiazepines Scrn Not Detected Urine Cocaine Screen Not Detected U Marijuana (THC) Screen POSITIVE H Microbiology Microbiology Results: Microbiology 08/14/20 09:18 Sputum - Expectorated Direct Acid Fast Bacilli Smear - Preliminary 08/17/20 18:28 Blood - Venous Blood Culture - Preliminary Staphylococcus aureus 08/18/20 05:22 Blood - Venous Blood Culture - Preliminary No growth after 24 hours. 08/18/20 05:22 Blood - Venous Blood Culture - Preliminary No growth after 24 hours. 08/17/20 18:28 Blood - Venous Blood Culture - Preliminary No growth after 24 hours. 08/15/20 14:48 Blood - Venous Blood Culture - Final Staphylococcus aureus 08/15/20 14:48 Blood - Venous Blood Culture - Final Staphylococcus aureus 08/14/20 09:17 Sputum - Expectorated Gram Stain - Final 08/14/20 09:17 Sputum - Expectorated Sputum Culture - Final 08/14/20 01:25 Blood - Venous Blood Culture - Final Staphylococcus aureus 08/14/20 01:17 Blood - Venous Blood Culture - Final Staphylococcus aureus 08/14/20 01:07 Blood - Venous Blood Culture - Final 08/14/20 01:07 Blood - Venous Blood Culture - Final Physical Exam Vital Signs: Vital Signs: Last Vital Signs Temp 98.7 F 08/19/20 08:00 Pulse 97 08/19/20 08:00 Resp 20 08/19/20 08:00 BP 102/58 L 08/19/20 08:00 Pulse Ox 97 08/19/20 08:00 Body Mass Index 31.3 Const: General: cooperative HENMT: Head: Yes normal to inspection Mouth: Normal oral and palatal mucosa present Resp: Effort & Inspection: normal respiratory effort Cardio: Rate: regular rate GI: Palpation (GI): Soft to palpation and nontender Skin: Other: multiple injection oseguera General skin exam: no rashes or lesions noted Extrem: General: Yes normal to inspection Assessment and Plan Assessment and plan (1) Bacteremia: Problem details: PRSA bacteremia She has septic pulmonary emboli HIV has been negative Endocarditis,recurrent concern Status: Acute Assessment and Plan: 6 weeks Kefzol Finish 09/29 Weekly CBC,creatinine,SGOT Patient is in agreement (2) Cavitary pneumonia: Status: Acute Time Spent With Patient Time: Total time spent is greater than 50% in coordination of care (as documented) at patient's floor/unit and/or counseling patient: Time with patient: 15 - 24 minutes
[2020-08-19] MEDS: 0.9 % Sodium Chloride 1,000 ML 5 ML IVCONT (14:16)
[2020-08-19] MEDS: ceFAZolin Sodium/Dextrose,Iso 2 GM/50 ML PIGGYBACK IV ×2 (14:39→21:20)
[2020-08-19 16:00] VITALS: BP 99/60; PULSE 86; RESP 20; TEMP 36.4; O2SAT 98
[2020-08-19] MEDS: Cyclobenzaprine HCl 5 MG TABLET PO ×2 (16:21→21:20)
--- NOTE | 2020-08-19 16:27 | MHC.CM.PN ---
DP Female 29 DX Septic emboli. Plan is DC to [facility] with BLS for transport. Blood cultures pending. Once BL cultures complete PICC will beordered.
[2020-08-19 16:43] LABS: Vancomycin Trough 19.6 mcg/mL (10.0-20.0)
[2020-08-19 20:00] VITALS: BP 107/78; PULSE 87; RESP 19; TEMP 36.9; O2SAT 97
[2020-08-19] MEDS: Melatonin 3 MG TABLET 6 MG PO (21:20)
[2020-08-19 23:43] VITALS: PULSE 92; RESP 18; TEMP 36.9
[2020-08-20 03:24] VITALS: BP 101/68; PULSE 93; RESP 18; TEMP 37.3; O2SAT 95
[2020-08-20] MEDS: ceFAZolin Sodium/Dextrose,Iso 2 GM/50 ML PIGGYBACK IV ×3 (06:36→22:05)
[2020-08-20 07:58] VITALS: BP 94/53; PULSE 100; RESP 18; TEMP 36.8; O2SAT 97
[2020-08-20] MEDS: Cyclobenzaprine HCl 5 MG TABLET PO ×2 (09:24→17:20)
[2020-08-20] MEDS: 0.9 % Sodium Chloride Flush 3 ML SYRINGE IVFLUSH ×3 (09:24→22:05)
[2020-08-20] MEDS: Acetaminophen 325 MG TABLET 650 MG PO ×2 (09:24→17:19)
[2020-08-20] MEDS: Rivaroxaban 10 MG TABLET PO (09:24)
[2020-08-20] MEDS: Lidocaine 4 % Patch ADH..PATCH 1 PATCH TRANSDERMA ×2 (09:25→15:04)
[2020-08-20 12:00] VITALS: BP 96/59; PULSE 83; RESP 18; TEMP 36.8; O2SAT 97
--- NOTE | 2020-08-20 13:34 | MHC.CM.PN ---
Addendum entered by Avelina Avilez 08/20/20 16:17: Pt also reports she cannot DC today due to pain, being unable to eat and says she is concerned because she was told she still had positive blood cultures. Message relayed to MD that pt was requesting to speak to her. pts MDS and MH forms have been sent to [facility]. CM still waiting for SNF to confirm they will take pt today or tomorrow. Original Note: CM met with pt to discuss DC plans. Pt reports she goes to [facility] in [place] for her methadone maintenance. She reports she does not feel like she can DC today. pt initially reports she wants a PICC line because she will feel the Vanco after a few days but says she will need to be sedated for a PICC insertion and suggests Xanax be given. Pt then indicates several times that she would rather go home. CM reminded pt that she would not get the Abx if she were to go home. pt then asks if a referral can be made to a different STR as she has been to [facility] and hates it . She does reports she wants to be in the area though and is not willing to go to [facility]. A referral was made to [facility] per pts request. CM also notified MD that pt was requesting to see them Current DC plan is STR for IV Abx to last until 09/29/20. CM will complete and send MDS in anticipation of DC today vs tomorrow
[2020-08-20 15:38] VITALS: BP 108/56; PULSE 89; RESP 18; TEMP 36.8; O2SAT 97
--- NOTE | 2020-08-20 17:53 | HO.PM.IMPN ---
Subjective Subjective Date of Service: 08/20/20 Interval History: feeling sweaty with generalized discomfort blood cultures came back negative, midline in place. ROS General no headache, no dizziness, no fever,Generalized pain CVS no chest pain, no palpitation. Respiratory no cough no sob. Gastrointestinal no nausea, no vomiting, no abdominal pain Physical Exam Vital Signs: Vital Signs: Last Vital Signs Temp 98.3 F 08/20/20 15:38 Pulse 89 08/20/20 15:38 Resp 18 08/20/20 15:38 BP 108/56 L 08/20/20 15:38 Pulse Ox 97 08/20/20 15:38 Body Mass Index 31.3 General no acute distress. EYES pupils un equal rt. bigger than left due to injury. Neck no JVD. CVS regular rate rhythm, Respiratory lungs clear to auscultation, no respiratory distress, no wheeze, no rhonchi. Gastrointestinal abdomen soft, nontender, bowel sounds audible Extremities no edema. Neuro nonfocal patient moving all 4 extremity speech clear. Skin no rash, scabs Psych appropriate affect Objective Data Current Medications Generic Name Dose Route Start Last Admin Trade Name Freq PRN Reason Stop Dose Admin Acetaminophen 650 mg 08/14/20 01:51 08/20/20 17:19 Acetaminophen 325 Mg Tablet PO 650 mg Q6H PRN Administration Pain, Mild (Pain Scale 1-3) Cyclobenzaprine HCl 5 mg 08/15/20 23:13 08/20/20 17:20 Cyclobenzaprine Hcl 5 Mg Tablet PO 5 mg TID PRN Administration Muscle Spasm Hydromorphone HCl 1 mg 08/17/20 18:18 Hydromorphone Hcl 1 Mg/Ml Syringe IVPUSH ONCE PRN Once before MRI Sodium Chloride 1,000 mls @ 0 mls/hr 08/19/20 13:30 08/19/20 14:16 Ns IVCONT 5 mls/hr .Q0M CHEYENNE Administration KVO Cefazolin Sodium/Dextrose 2 gm in 50 mls @ 100 mls/hr 08/19/20 14:15 08/20/20 15:40 Ancef IV Infused Q8H CHE[place]NE Infusion Lidocaine 1 patch 08/15/20 09:00 08/20/20 15:04 Lidocaine 4 % Patch Adh..Patch TRANSDERMA 1 patch DAILY CHEYENNE Administration Protocol Melatonin 6 mg 08/14/20 20:35 08/19/20 21:20 Melatonin 3 Mg Tablet PO 6 mg BEDTIME PRN Administration Insomnia Methadone HCl 80 mg 08/14/20 13:55 08/20/20 09:24 Methadone Hcl 1 Mg/0.1 Ml Oral.Conc PO 80 mg DAILY CHEYENNE Administration Metoclopramide HCl 5 mg 08/15/20 14:11 08/15/20 14:20 Metoclopramide Hcl 10 Mg/2 Ml Vial IVPUSH 5 mg Q6H PRN Administration Nausea Pharmacy Consult 1 each 08/14/20 01:02 Consult Rx Vancomycin Dosing MISCELLANE DAILY PRN Consult order Pharmacy Consult 1 each 08/14/20 01:50 Consult Rx Vancomycin Dosing MISCELLANE DAILY PRN Consult order Rivaroxaban 10 mg 08/15/20 10:30 08/20/20 09:24 Rivaroxaban 10 Mg Tablet PO 10 mg DAILY [place]NE Administration Senna 17.2 mg 08/14/20 01:51 Sennosides 8.6 Mg Tablet PO BEDTIME PRN Constipation Sodium Chloride 3 ml 08/14/20 08:00 08/20/20 15:08 0.9 % Sodium Chloride Flush 3 Ml Syringe IVFLUSH 3 ml QSHIFT CHEYENNE Administration Labs CBC & Chem 7: 08/17/20 05:19 08/18/20 18:03 Microbiology Microbiology Results: Microbiology 08/18/20 05:22 Blood - Venous Blood Culture - Preliminary No growth after 48 hours. 08/18/20 05:22 Blood - Venous Blood Culture - Preliminary No growth after 48 hours. 08/17/20 18:28 Blood - Venous Blood Culture - Final Staphylococcus aureus 08/17/20 18:28 Blood - Venous Blood Culture - Preliminary No growth after 48 hours. 08/14/20 09:18 Sputum - Expectorated Direct Acid Fast Bacilli Smear - Preliminary 08/15/20 14:48 Blood - Venous Blood Culture - Final Staphylococcus aureus 08/15/20 14:48 Blood - Venous Blood Culture - Final Staphylococcus aureus 08/14/20 09:17 Sputum - Expectorated Gram Stain - Final 08/14/20 09:17 Sputum - Expectorated Sputum Culture - Final 08/14/20 01:25 Blood - Venous Blood Culture - Final Staphylococcus aureus 08/14/20 01:17 Blood - Venous Blood Culture - Final Staphylococcus aureus 08/14/20 01:07 Blood - Venous Blood Culture - Final 08/14/20 01:07 Blood - Venous Blood Culture - Final Assessment and Plan (1) Opioid use disorder: Status: Acute (2) Bacteremia: Problem details: PRSA bacteremia She has septic pulmonary emboli HIV has been negative Endocarditis,recurrent concern Status: Acute (3) Cavitary pneumonia: Status: Acute (4) Uses drugs by injection: Status: Acute (5) Fever: Status: Acute Assessment and Plan: 29-year-old female with a past medical history of anxiety, depression, PTSD, history of seizures, history of hep B, history of hep C, history of IV drug abuse, polysubstance abuse, opiate dependence on methadone, history of endocarditis presented with chest pain/ abdominal pain. CT scan showed cavitary lung lesions and pulmonary septic emboli. Admitted for further management. Endocarditis 12/15/19, 06/2018 Stapah bacteremia, likely MRSA with septic pulmonary emboli Tricuspid valve endocarditis repeat blood cultures 08/17, so far negative, status post midline placement on 08/19/20 Dr Hannon rec 6 weeks iv abx with iv kefzol end date 09/29 ,Weekly CBC,creatinine,SGOT to be transferred to rehab facility for continued antibiotic Opiate dependence. continue Methadone 80 mg Generalized pain, chronic Back spasm Continue Lidocaine patch,Warm compress patient refused MRI to rule out diskitis, no neurological deficit and legs History of IV drug abuse/cocaine abuse: Patient counseled to avoid illicit drug use, continue supportive care. DVT prophylaxis with xarelto
[2020-08-20] MEDS: Sennosides 8.6 MG TABLET 17.2 MG PO (18:26)
[2020-08-20 19:29] VITALS: BP 110/67; PULSE 95; RESP 18; TEMP 37.2; O2SAT 98
[2020-08-20] MEDS: Melatonin 3 MG TABLET 6 MG PO (22:05)
[2020-08-20 23:08] VITALS: BP 109/61; PULSE 89; RESP 18; TEMP 37.2; O2SAT 96
[2020-08-21] MEDS: Ibuprofen 600 MG TABLET PO ×2 (00:27→08:58)
[2020-08-21] MEDS: Cyclobenzaprine HCl 5 MG TABLET PO ×2 (00:27→08:58)
[2020-08-21 04:00] VITALS: BP 98/55; PULSE 77; RESP 18; TEMP 36.4; O2SAT 98
[2020-08-21] MEDS: ceFAZolin Sodium/Dextrose,Iso 2 GM/50 ML PIGGYBACK IV (05:18)
[2020-08-21 07:36] VITALS: BP 101/59; PULSE 83; RESP 18; TEMP 36.8; O2SAT 99
[2020-08-21] MEDS: 0.9 % Sodium Chloride Flush 3 ML SYRINGE IVFLUSH (08:55)
[2020-08-21] MEDS: Rivaroxaban 10 MG TABLET PO (08:55)
[2020-08-21 11:30] VITALS: BP 112/76; PULSE 82; RESP 18; TEMP 36.4; O2SAT 99
--- NOTE | 2020-08-21 11:41 | MHC.CM.PN ---
PT CLEARED TO DC TO [facility] TODAY. PT AND FACILITY ARE AWARE PT WILL BE TRANSPORTED AT 1500 HOURS. CM DISCUSSED OBTAINING A NEW PCP WITH PT SHE HAS NOT HAD ONE IN 8 YEARS. PT REPORTS WANTING TO GET ESTABLISHED WITH A PCP IN [place] SHE IS NOW LIVING THERE WITH A FRIEND. PT WILL NEED A NEW COVID SWAB PRIOR TO DC AND HER MDS AND DC SUMMARY WILL BE FAXED TO [facility] @ [phone] PRIOR TO PT LEAVING THE HOSPITAL
--- NOTE | 2020-08-21 12:15 | P.DS_ITS ---
DS: Providers Provider Date of Service: 08/21/20 Date of admission: 08/14/20 01:51 Primary care physician: None Physician Consults: 08/14/20 01:50 Consult to Infectious Diseases Routine Consulting Provider: Светлана Hannon Reason for consultation: lung cavitary lesions; hx Endocarditis; Lung septic emboli; IVDA hx 08/15/20 10:17 Consult to BUILDING MANAGER Routine Consulting Provider: Mickie Marcos Reason for consultation: substance abuse, increase methadone Has provider been notified: No 08/16/20 08:12 Consult to Infectious Diseases Routine Consulting Provider: Светлана Hannon Reason for consultation: yeast in blood cx Has provider been notified: Yes DS: Diagnosis Discharge Diagnosis (1) Opioid use disorder: Status: Acute (2) Bacteremia: Status: Acute (3) Cavitary pneumonia: Status: Acute (4) Uses drugs by injection: Status: Acute (5) Fever: Status: Acute DS: Medications Discharge Medications Home Medications: Home Medications Medication Instructions Recorded Confirmed methadone [Methadone Intensol] 85 mg PO DAILY 08/14/20 08/14/20 Previous Rx's Medication Instructions Recorded acetaminophen 650 mg PO Q6H PRN #10 tab 08/21/20 cefazolin in dextrose (iso-os) 2 g IV Q8H #115 ea 08/21/20 cyclobenzaprine 5 mg PO TID PRN #12 tab 08/21/20 ibuprofen 600 mg PO Q8H PRN #1 tab 08/21/20 melatonin 6 mg PO BEDTIME PRN #30 tab 08/21/20 sennosides [Senna Lax] 17.2 mg PO BEDTIME PRN #3 tab 08/21/20 DS: Summary Hospital Course Hospital Course: hpi Chief Complaint: chest pain be 29-year-old female with a past medical history of IV drug abuse, history of hep C, hep B, polysubstance abuse, PTSD, seizures, history of endocarditis in 2019 and 2019, opiate dependence on methadone presented to the hospital with a chief complaint of chest pain, abdominal pain, back pain along with coughing of blood the past couple days. Denies any numbness tingling. denies any palpitations. Mentioned that the symptoms are similar to last day when she had endocarditis. Mention she still uses IV cocaine. Denies any GI or symptoms. Mention the symptoms have been intermittent. Review of systems is negative except mentioned above ER course: Per ER team patient CT scan showed multiple lung cavitary lesion/septic emboli. Patient was given vanc and Zosyn. Also sent AFB; blood cultures have been sent Hospital course 29-year-old female with a past medical history of anxiety, depression, PTSD, history of seizures, history of hep B, history of hep C, history of IV drug abuse, polysubstance abuse, opiate dependence on methadone, history of endocarditis presented with chest pain/ abdominal pain. CT scan showed cavitary lung lesions and pulmonary septic emboli. Admitted for further management. Endocarditis 12/15/19, 06/2018 Stapah bacteremia, likely MRSA with septic pulmonary emboli with propable Tricuspid valve endocarditis,repeat blood cultures 08/17, negative, status post midline placement on 08/19/20, Dr Hannon from ID rec 6 weeks iv abx with iv kefzol end date 09/29 ,check Weekly CBC,creatinine,SGOT being transferred to rehab facility for continued antibiotics, patient has poor by mouth intake recommend Ensure t.i.d. Opiate dependence. continue Methadone 85 mg daily Generalized pain, chronic Back spasm, no acute exacerbation of back pain ,Continue Lidocaine patch, patient refused MRI to rule out diskitis, no neurological deficit noted. History of IV drug abuse/cocaine abuse: Patient counseled to avoid illicit drug use. Time Spent with Patient Time attestation: Total time spent providing and/or coordinating discharge services: Discharge coordination time: Greater than 30 minutes Physical Exam Vital Signs: Vital Signs: Last Vital Signs Temp 97.6 F 08/21/20 11:30 Pulse 82 08/21/20 11:30 Resp 18 08/21/20 11:30 BP 112/76 08/21/20 11:30 Pulse Ox 99 08/21/20 11:30 Body Mass Index 31.3 General no acute distress. EYES pupils un equal rt. bigger than left due to injury. Neck no JVD. CVS regular rate rhythm, systolic murmur Respiratory lungs clear to auscultation, no respiratory distress, no wheeze, no rhonchi. Gastrointestinal abdomen soft, nontender, bowel sounds audible Extremities no edema. Neuro nonfocal patient moving all 4 extremity, speech clear. Skin no rash, dry scabs on extremities Psych appropriate affect DS: Data Data Completed and Pending Labs on day of discharge: Preliminary micro results at discharge 08/18/20 05:22 Blood Culture - Preliminary Blood - Venous No growth after 48 hours. 08/18/20 05:22 Blood Culture - Preliminary Blood - Venous No growth after 48 hours. 08/17/20 18:28 Blood Culture - Preliminary Blood - Venous No growth after 48 hours. 08/14/20 09:18 Direct Acid Fast Bacilli Smear - Preliminary Sputum - Expectorated Discharge Plan Discharge Patient Disposition: er SNF Discharge Diagnosis: Staph bacteremia septic pulmonary emboli Referrals: [facility] [Outside] - 1 Week Physician,None [Primary Care Provider] - 1 Week Discharge Medications: New sennosides [Senna Lax] 8.6 mg Tablet 17.2 mg PO BEDTIME PRN (Reason: Constipation) Qty: 3 RF: 0 acetaminophen 325 mg Tablet 650 mg PO Q6H PRN (Reason: Pain, Mild (Pain Scale 1-3)) Qty: 10 RF: 0 melatonin 3 mg Tablet 6 mg PO BEDTIME PRN (Reason: Insomnia) Qty: 30 RF: 0 ibuprofen 600 mg Tablet 600 mg PO Q8H PRN (Reason: Pain, Mild (Pain Scale 1-3)) Qty: 1 RF: 0 cyclobenzaprine 5 mg Tablet 5 mg PO TID PRN (Reason: Muscle Spasm) Qty: 12 RF: 0 cefazolin in dextrose (iso-os) 2 gram/50 mL Piggyback 2 g IV Q8H Qty: 115 RF: 0 Continued methadone [Methadone Intensol] 10 mg/mL Concentrate 85 mg PO DAILY RF: 0 Discharge Orders: Discharge Order (Routine); Ordered 08/21/20 Ordered By: Haresh Tapia Diet: advance to usual diet and other Activity on Discharge: As tolerated Stand Alone Forms: Patient Portal Discharge page Care Plan Goals: chocolate Ensure t.i.d. Health Concerns: IV drug abuse/bacteremia, take IV Ancef through September 29, Plan of Treatment: Outpatient follow-up with primary care physician. Patient discharged to rehab for less than 30 days Assessment: See discharge summary
[2020-08-21 13:06] LABS: COVID-19 Test Negative (Negative); IDNOW Serial# 9DD0AD1C
== END 2020-08-21 15:05 | disposition skilled nursing facility (03) | DRG 720 ==
LOC: HO.ED 08-14 01:57 → HO.EDOVER 08-14 02:25 → HO.IMC 08-14 18:33
PROVIDERS: Emergency Medicine; Internal Medicine; Nurse Practitioner Acute Care; Nurse Practitioner Family; Admitting Provider Hospitalist; Emergency Provider Emergency Medicine Emergency Medical Services; Visit Provider Hospitalist
DX: A41.02 Sepsis due to Methicillin resistant Staphylococcus aureus (principal); I26.90 Septic pulmonary embolism without acute cor pulmonale; J18.8 Other pneumonia, unspecified organism; F11.20 Opioid dependence, uncomplicated; I07.9 Rheumatic tricuspid valve disease, unspecified; R04.2 Hemoptysis; F43.10 Post-traumatic stress disorder, unspecified; M62.830 Muscle spasm of back; Z20.822 Contact with and (suspected) exposure to COVID-19; F17.210 Nicotine dependence, cigarettes, uncomplicated; Z71.6 Tobacco abuse counseling; Z79.899 Other long term (current) drug therapy
CPT/HCPCS: 36410; 36415; 71250; 74176; 80048; 80053; 80202; 80307; 81001; 81025; 82565; 83605; 85025; 85652; 87040; 87070; 87116; 87147; 87186; 87205; 87635; 93306; 96361; 96365; 96366; 96368; 99285; J0690; J1650; J2060; J2270; J2543; J2765; J3370